=== PATIENT | female | born 2000 | race Caucasian/White ===

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

== ENCOUNTER → 2021-02-22 12:55 | Outpatient (CLI) | payer OTHER, SELFPAY ==
--- NOTE | 2021-02-22 12:56 | US_ITS ---
PROCEDURE: US OB >= 14 WEEKS FETUS CLINICAL INDICATION: anatomy scan COMPARISON: No exams were available for comparison FINDINGS: There is a single live intrauterine gestation. There is cephalic presentation. The cervix is closed and measures 3 cm. Of sent is posterior and grade 1. Complete survey performed and was unremarkable on the submitted images as in PACS. No discrete anomalies identified on survey imaging by technologist. Active fetus. Three-vessel cord with satisfactory umbilical cord insertion. 4- chamber heart noted. Survey of brain & ventricles Unremarkable. Face and neck survey unremarkable. Diaphragm and chest views unremarkable. Abdomen: Both kidneys noted and unremarkable. Stomach noted and satisfactory. Spine: Survey of the spine satisfactory with no anomalies identified nor imaged. Both arms and legs noted. Amniotic Fluid: Adequate. Maternal adnexa: No significant findings. Measurements: Average ultrasound age 19weeks 2days. Gestational Age 19weeks 2days Estimated due date by ultrasound age 0507/17/2021. Estimated weight 288g BPD = 19weeks 3days OFD = 19weeks 3days HC = 18weeks 5days AC = 19weeks 5days FL = 19weeks 2days Growth Percentile= 11% Heart Rate = 146bpm Cerebellum = 19weeks Humerus = 19weeks 2days HC/AC is 1.11 CI is 0.79 FL/BPD is 0.67 FL/AC is 0.21 IMPRESSION: Live IUP with an average ultrasound age of 19 weeks 2 days with cephalic presentation. No obvious anomalies. Please see above for detail. Dictated by: Johnie Haddad MD 02/23/2021 09:36 Johnie Haddad MD in [place] 02/23/2021 09:36
== END ==
PROVIDERS: PCP Family Medicine; Visit Provider Obstetrics & Gynecology
DX: Z34.90 Encounter for supervision of normal pregnancy, unspecified, unspecified trimester (principal)
CPT/HCPCS: 76805

== ENCOUNTER 2021-02-24 13:59 | Emergency (ER) | payer OTHER, SELFPAY ==
[2021-02-24 16:35] VITALS: BP 0/0; PULSE 0; RESP 0; TEMP -17.7; TEMP 0
== END 2021-02-24 16:36 | disposition left against medical advice (07) ==
LOC: UTC 14:01
PROVIDERS: Emergency Provider Nurse Practitioner Family; PCP Family Medicine
DX: Z53.21 Procedure and treatment not carried out due to patient leaving prior to being seen by health care provider (principal)

== ENCOUNTER 2021-02-25 19:21 | Emergency (ER) | payer OTHER, SELFPAY ==
[2021-02-25 20:37] VITALS: BP 121/67; PULSE 90; RESP 14; TEMP 36.8; O2SAT 100; BMI 18.6
--- NOTE | 2021-02-25 20:39 | HMH.EDUTC ---
[facility] [place] Clinical Impression: Sinusitis Qualifiers: Sinusitis location: unspecified location Chronicity: acute Recurrence: non-recurrent Qualified Code(s): J01.90 - Acute sinusitis, unspecified Qualifiers: Weeks of gestation: 20 weeks Qualified Code(s): Z3A.20 - 20 weeks gestation of Disposition: Home, Self-Care Condition on Discharge: Good Instructions: DI for Sinusitis, Sinusitis Additional Instructions: Drink plenty of fluids. Take tylenol or ibuprofen for pain or fever. Take the medications as directed. Follow up with your regular doctor. GO TO THE ER FOR ANY WORSENING SYMPTOMS Prescriptions: Azithromycin [Z-Ck 250mg Tab*] 250 mg PO UD DOSE PK #6 tab Transmission Status: [facility]ending [facility] Referrals: Rohit Coronel MD [Primary Care Provider] - Time of Disposition: 20:59 Medical Decision Making - Medical Records Medical records reviewed: No: I reviewed the patient's medical records. - Fercho Inquiry Pt receiving controlled substance: No Vital Signs: 02/25/21 20:37 Temperature 98.2 F Temperature Source Oral Pulse Rate [Left] 90 Respiratory Rate 14 Blood Pressure [Right Arm] 121/67 Blood Pressure Mean [Right Arm] 85 02 Sat by Pulse Oximetry 100 Orders (Tests/Meds): ORDERS Category Date Time Status Full Resp Panel w/COVID ([facility]) Routine Lab 02/25/21 20:42 Ordered [facility] [place] HPI - General Stated complaint: sinus infection Time Seen by Provider: 02/25/21 20:39 - History of Present Illness Provider Complaint: She states that she has sinus congestion with greenish drainage, bilateral ear pain and a head ache. She gets sinus infections this time of the year. She denies any fever or chills. She is 20 weeks . - Related Data Home Medications Medication Instructions Recorded Confirmed docosahexaenoic acid 200 mg capsule mg PO 12/06/20 01/31/21 Previous Rx's Medication Instructions Recorded ondansetron 4 mg disintegrating 4 mg PO Q4H PRN #30 tab 12/06/20 tablet Azithromycin [Z-Ck 250mg Tab*] 250 mg PO UD DOSE PK #6 tab 02/25/21 Allergies Allergy/AdvReac Type Severity Reaction Status Date / Time No Known Allergies Allergy Verified 01/31/21 15:39 [facility] History - Hepatitis A Screen Attestation statement:: This patient has been screened for Hepatitis A risk factors. I have reviewed the patient's past medical history: Yes 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: Reports:: Migraine Denies:: Cancer, Diabetes Mellitus Type 1, Diabetes Mellitus Type 2, Internal Pacemaker, MRSA, Seizures Laterality Cases: Bilateral: Tonsillectomy Other Surgeries: No: Pacemaker Amputation: No Fractures: No - 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 Smoking Status: Former smoker Alcohol Intake: never Alcohol Intake Frequency:: other Substance Use Type: former substance user, marijuana Occupational Status: other Housing: house Household Members: family Family Hx:: Unable to obtain, Cancer, Diabetes, Hypertension, Thyroid Disorder, Heart Attack, Hyperlipidemia ROS Obtained: Yes All systems reviewed & no additional complaints - Constitutional Constitutional: Denies chills, Denies fever(s), Reports poor appetite, Reports malaise - Eyes Eyes: Denies eye discharge - ENT Ears, Nose, Mouth, and Throat: Denies dizziness, Reports otalgia, Reports sore throat - Cardiovascular Cardiovascular: Denies chest pain - Respiratory Respiratory: Denies chest congestion, Reports cough, Denies dyspnea, Denies stridor, Denies wheezing Physical Exam - General General appearance: alert, in no apparent distress - Head Head exam: atraumatic, normocephalic, normal inspection - Eye Eye exam: Present: normal appearance, PERRL, EOMI - ENT ENT exam: Present: mucous membranes moist, normal external ear exam - Expanded ENT Exam TM/Canal exam: Bilateral TM: erythema, bulging, effusion Nose exam: Present: sinus tenderness Nasal speculum exam: Bilateral: normal Mouth exam
[2021-02-25 20:57] VITALS: BP 121/67; PULSE 90; RESP 14; TEMP 36.8
[2021-02-25 21:06] LABS: Adenovirus,PCR Not Detected (NotDetected); Bordetella Pertussis Not Detected (NotDetected); Chlamydophila Pneumoniae, PCR Not Detected (NotDetected); Coronavirus 19, PCR Not Detected (NotDetected); Coronavirus 229E Not Detected (NotDetected); Coronavirus NL63 Not Detected (NotDetected); Coronavirus OC43 Not Detected (NotDetected); Coronovirus HKU1,PCR Not Detected (NotDetected); Human Metapneumovirus Not Detected (NotDetected); Influenza A, PCR Not Detected (NotDetected); Influenza AH1, 2009 Not Detected (NotDetected); Influenza AH1, PCR Not Detected (NotDetected); Influenza AH3,PCR Not Detected (NotDetected); Influenza B, PCR Not Detected (NotDetected); Mycoplasma Pneumoniae, PCR Not Detected (NotDetected); Parainfluenza 1, PCR Not Detected (NotDetected); Parainfluenza 2, PCR Not Detected (NotDetected); Parainfluenza 3, PCR Not Detected (NotDetected); Parainfluenza 4, PCR Not Detected (NotDetected); Respiratory Syncytial Virus Not Detected (NotDetected); Rhinovirus/Enterovirus Not Detected (NotDetected)
== END 2021-02-25 21:08 | disposition home or self-care (01) ==
PROVIDERS: Emergency Provider Nurse Practitioner Family; PCP Family Medicine
DX: J01.90 Acute sinusitis, unspecified (principal); Z3A.20 20 weeks gestation of pregnancy; Z87.891 Personal history of nicotine dependence
CPT/HCPCS: 87581; 87632; 87798; 99202; C9803; G0463; U0003; U0005

== ENCOUNTER 2021-03-15 11:26 | Emergency (ER) | payer OTHER, SELFPAY ==
[2021-03-15 13:38] VITALS: BP 127/70; PULSE 94; RESP 16; TEMP 36.9; O2SAT 99; BMI 18.9
--- NOTE | 2021-03-15 14:06 | HMH.EDUTC ---
[facility] [place] Clinical Impression: Viral syndrome, Exposure to COVID-19 virus Pharyngitis Qualifiers: Pharyngitis/tonsillitis etiology: unspecified etiology Qualified Code(s): J02.9 - Acute pharyngitis, unspecified Qualifiers: Weeks of gestation: 21 weeks Qualified Code(s): Z3A.21 - 21 weeks gestation of Disposition: Home, Self-Care Condition on Discharge: Good Instructions: DI for Strep Throat, DI for COVID-19 (Suspected or Confirmed ), Preventing the Spread of Coronavirus Discharge Instructions Additional Instructions: Drink plenty of fluids. Take tylenol for pain or fever. Take the medications as directed. Follow up with your regular doctor. GO TO THE ER FOR ANY WORSENING SYMPTOMS Throw your tooth brush away and get a new one. Quarantine until you know the results of your covid-19 test. Notify your school or workplace of your results and follow their instructions regarding return to work/school. Let your instructional aide doctor know what is going on with you. Prescriptions: Amoxicillin [Amoxicillin 500mg Tab] 500 mg PO TID 10 Days #30 tab Transmission Status: [facility] to [facility] Referrals: Rohit Coronel MD [Primary Care Provider] - Forms: Work/School Release Time of Disposition: 14:45 Medical Decision Making - Medical Records Medical records reviewed: No: I reviewed the patient's medical records. - Fercho Inquiry Pt receiving controlled substance: No Vital Signs: 03/15/21 13:38 Temperature 98.4 F Temperature Source Oral Pulse Rate [Left] 94 H Respiratory Rate 16 Blood Pressure [Right Arm] 127/70 Blood Pressure Mean [Right Arm] 89 02 Sat by Pulse Oximetry 99 - Lab Data Lab results reviewed: Yes: I reviewed the patient's lab results. Orders (Tests/Meds): ORDERS Category Date Time Status Covid-19 Nasal PCR ([facility]) Routine Lab 03/15/21 13:42 Received [facility] [place]PI - General Stated complaint: sore throat Time Seen by Provider: 03/15/21 14:06 Mode of Arrival: Ambulatory Source of Information: Patient Limitations: No Limitations Description of Symptoms (Recalled from Triage Doc. by RN): pt c/o a sore throat since yesterday. . HEENT Symptoms (Recalled from RN notes): Yes (sore throat) Resp Symptoms (Recalled from RN notes): No Skin Symptoms (Recalled from RN notes): No MS Symptoms (Recalled from RN notes): No Functional Status (Recalled from RN notes): wnl - History of Present Illness Provider Complaint: She c/o having a very sore throat for the past 2 days. She denies fever/chills/body ache and cough. She has not been vaccinated against covid-19. She is 21 weeks . - Related Data Home Medications Medication Instructions Recorded Confirmed docosahexaenoic acid 200 mg capsule mg PO 12/06/20 01/31/21 Previous Rx's Medication Instructions Recorded ondansetron 4 mg disintegrating 4 mg PO Q4H PRN #30 tab 12/06/20 tablet Azithromycin [Z-Ck 250mg Tab*] 250 mg PO UD DOSE PK #6 tab 02/25/21 Amoxicillin [Amoxicillin 500mg Tab] 500 mg PO TID 10 Days #30 tab 03/15/21 Allergies Allergy/AdvReac Type Severity Reaction Status Date / Time No Known Allergies Allergy Verified 01/31/21 15:39 - Worker's Comp Is this a Worker's Comp case?: No [facility] History - Hepatitis A Screen Drug use history?: No High risk sexual behaviors?: No History of sexually transmitted infection?: No Currently employed?: No Childcare worker?: No Do you have indoor plumbing?: Yes Do you have electricity?: Yes Attestation statement:: This patient has been screened for Hepatitis A risk factors. I have reviewed the patient's past medical history: Yes 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: Reports:: Migraine Denies:: Cancer, Diabetes Mellitus Type 1, Diabetes Mellitus Type 2, Internal Pacemaker, MRSA, Seizures Laterality Cases: Bilateral: Tonsillectomy Other Surgeries: No: Pacemaker Amputation: No Fractures: No - 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 Smoking Status: Former
[2021-03-15 14:52] LABS: UTC Strep Screen (Rapid) Negative (Negative)
[2021-03-15 14:53] LABS: UTC Influenza A Antigen Negative (Negative); UTC Influenza B Antigen Negative (Negative)
[2021-03-15 14:56] VITALS: BP 127/70; PULSE 94; RESP 16; TEMP 36.9
[2021-03-15 15:03] LABS: Adenovirus,PCR Not Detected (NotDetected); Bordetella Pertussis Not Detected (NotDetected); Chlamydophila Pneumoniae, PCR Not Detected (NotDetected); Coronavirus 19, PCR Not Detected (NotDetected); Coronavirus 229E Not Detected (NotDetected); Coronavirus NL63 Not Detected (NotDetected); Coronavirus OC43 Not Detected (NotDetected); Coronovirus HKU1,PCR Not Detected (NotDetected); Human Metapneumovirus Not Detected (NotDetected); Influenza A, PCR Not Detected (NotDetected); Influenza AH1, 2009 Not Detected (NotDetected); Influenza AH1, PCR Not Detected (NotDetected); Influenza AH3,PCR Not Detected (NotDetected); Influenza B, PCR Not Detected (NotDetected); Mycoplasma Pneumoniae, PCR Not Detected (NotDetected); Parainfluenza 1, PCR Not Detected (NotDetected); Parainfluenza 2, PCR Not Detected (NotDetected); Parainfluenza 3, PCR Not Detected (NotDetected); Parainfluenza 4, PCR Not Detected (NotDetected); Respiratory Syncytial Virus Not Detected (NotDetected); Rhinovirus/Enterovirus Not Detected (NotDetected)
== END 2021-03-15 14:59 | disposition home or self-care (01) ==
PROVIDERS: Emergency Provider Nurse Practitioner Family; PCP Family Medicine
DX: O26.892 Other specified pregnancy related conditions, second trimester (principal); B34.9 Viral infection, unspecified; Z20.822 Contact with and (suspected) exposure to COVID-19; Z87.891 Personal history of nicotine dependence
CPT/HCPCS: 87581; 87632; 87798; 87804; 87880; 99203; C9803; G0463; U0003; U0005

== ENCOUNTER → 2021-03-20 17:13 | Outpatient (CLI) | payer OTHER, SELFPAY | PROVIDERS: Visit Provider Nurse Practitioner | DX: U07.1 COVID-19 (principal) | CPT/HCPCS: C9803; U0003; U0005 ==

== ENCOUNTER 2021-08-12 16:32 | Emergency (ER) | payer OTHER, SELFPAY ==
[2021-08-12 17:09] VITALS: BP 125/83; PULSE 79; RESP 17; TEMP 36.9; O2SAT 100; BMI 18.3
--- NOTE | 2021-08-12 17:31 | HMH.EDUTC ---
[facility] [place] Clinical Impression: Anxiety Fatigue Qualifiers: Fatigue type: unspecified Qualified Code(s): R53.83 - Other fatigue Disposition: Home, Self-Care Condition on Discharge: Good Instructions: DI for Anxiety -- Adult, Hydroxyzine, Sertraline Additional Instructions: Drink plenty of fluids. Take the medications as directed. Take the hydroxyzine (vistaril) as needed for anxiety. Take the zoloft daily. Follow up with your regular doctor for further evaluation and treatment GO TO THE ER FOR ANY WORSENING SYMPTOMS Prescriptions: hydrOXYzine HCl [Hydroxyzine HCl] 10 mg PO Q6HP PRN #30 ml PRN Reason: Anxiety Transmission Status: Received by [facility] Sertraline HCl [Zoloft 50mg tablet] 50 mg PO DAILY 30 Days #30 tab Transmission Status: Received by [facility] Referrals: Rohit Coronel MD [Primary Care Provider] - Time of Disposition: 18:33 Medical Decision Making - Medical Records Medical records reviewed: No: I reviewed the patient's medical records. - Fercho Inquiry Pt receiving controlled substance: No Vital Signs: 08/12/21 17:09 08/12/21 18:36 Temperature 98.5 F 98.5 F Temperature Source Oral Pulse Rate 79 Pulse Rate [Left Radial] 79 Respiratory Rate 17 17 Blood Pressure 125/83 Blood Pressure [Right Arm] 125/83 Blood Pressure Mean [Right Arm] 97 02 Sat by Pulse Oximetry 100 - Lab Data Lab results reviewed: Yes: I reviewed the patient's lab results. Lab Results 08/12/21 17:57: WBC 7.6, RBC 5.62 H, Hgb 12.8, Hct 39.6, MCV 70.4 L, MCH 22.8 L, MCHC 32.4, RDW 22.8 H, Plt Count 366, MPV 8.9, Neut % (Auto) 57.0, Lymph % (Auto) 31.5, [place] % (Auto) 6.7, Eos % (Auto) 1.7, Baso % (Auto) 3.1 H, Neut # (Auto) 4.3, Lymph # (Auto) 2.4, [place] # (Auto) 0.5, Eos # (Auto) 0.1, Baso # (Auto) 0.2 08/12/21 17:57: Sodium 138, Potassium 3.9, Chloride 103, Carbon Dioxide 24, Anion Gap 14.9, BUN 6 L, Creatinine 0.60, Estimated Creat Clear 102, Estimated GFR 129, Est GFR ( Amer) 156, Glucose 89, Calcium 9.8 Result diagrams: 08/12/21 17:57 08/12/21 17:57 [facility] [place] - General Stated complaint: Anixtly Time Seen by Provider: 08/12/21 17:31 Description of Symptoms (Recalled from Triage Doc. by RN): patient comes in with multiple complaints. patient has had trouble eating and sleeping for two weeks. patient has had headaches and dizziness for 2 days. patient is having worseing trouble with anxiety for years. patiet had a baby 1 month ago. patient states that when she eats salt it helps. HEENT Symptoms (Recalled from RN notes): No Resp Symptoms (Recalled from RN notes): No Skin Symptoms (Recalled from RN notes): No MS Symptoms (Recalled from RN notes): No Functional Status (Recalled from RN notes): wnl - History of Present Illness Provider Complaint: She is here with complaint of worsening fatigue and anxiety. She denies any SI or HI. She had a baby 1 month ago. She is not breast feeding. She states that she was anemic during her and she is worried that she still is because of how she is feeling. - Related Data Home Medications Medication Instructions Recorded Confirmed docosahexaenoic acid 200 mg capsule mg PO 12/06/20 01/31/21 Previous Rx's Medication Instructions Recorded ondansetron 4 mg disintegrating 4 mg PO Q4H PRN #30 tab 12/06/20 tablet Azithromycin [Z-Ck 250mg Tab*] 250 mg PO UD DOSE PK #6 tab 02/25/21 Amoxicillin [Amoxicillin 500mg Tab] 500 mg PO TID 10 Days #30 tab 03/15/21 Sertraline HCl [Zoloft 50mg tablet] 50 mg PO DAILY 30 Days #30 tab 08/12/21 hydrOXYzine HCl [Hydroxyzine HCl] 10 mg PO Q6HP PRN #30 ml 08/12/21 Allergies Allergy/AdvReac Type Severity Reaction Status Date / Time No Known Allergies Allergy Verified 01/31/21 15:39 - Worker's Comp Is this a Worker's Comp case?: No [facility] History - Hepatitis A Screen Attestation statement:: This patient has been screened for Hepatitis A risk fac
[2021-08-12 18:11] LABS: Basophils # 0.2 K/mm3 (0-0.2); Basophils % 3.1 % (0.1-2.0); Eosinophils # 0.1 K/mm3 (0.0-0.4); Eosinophils % 1.7 % (0.1-12.0); Hematocrit 39.6 % (37.0-47.0); Hemoglobin 12.8 g/dL (12.2-16.2); Lymphocytes # 2.4 K/mm3 (0.7-4.5); Lymphocytes % 31.5 % (10-50); Mean Corpuscular HGB Conc 32.4 g/dL (31.8-35.4); Mean Corpuscular Hemoglobin 22.8 pg (27.0-31.2); Mean Corpuscular Volume 70.4 fl (81-99); Mean Platelet Volume 8.9 fl (7.4-10.4); Monocytes # 0.5 K/mm3 (0.1-1.0); Monocytes % 6.7 % (1.7-9.3); Neutrophils # 4.3 K/mm3 (1.8-7.8); Platelet Count 366 K/mm3 (142-424); Red Blood Count 5.62 M/mm3 (4.20-5.40); Red Cell Distribution Width 22.8 % (11.5-17.5); White Blood Count 7.6 K/mm3 (4.5-13.0)
[2021-08-12 18:15] LABS: Chloride 103 mmol/L (98-107); Potassium 3.9 mmoL/L (3.5-5.1); Sodium 138 mmol/L (136-145)
[2021-08-12 18:18] LABS: Anion Gap 14.9 mEq/L (5-15); Blood Urea Nitrogen 6 mg/dl (7-17); Calcium 9.8 mg/dl (8.4-10.2); Carbon Dioxide 24 mmol/L (22.0-30.0); Creatinine Clearance Estimated 102 mL/min (50-200); Estimated Glomerular Filt Rate 129 ml/min (>60); GFR (African American) 156 ML/MIN (>60); Glucose 89 mg/dl (74-100)
[2021-08-12 18:36] VITALS: BP 125/83; PULSE 79; RESP 17; TEMP 36.9
== END 2021-08-12 18:40 | disposition home or self-care (01) ==
PROVIDERS: Emergency Provider Nurse Practitioner Family; PCP Family Medicine
DX: R53.83 Other fatigue (principal); R42 Dizziness and giddiness; G43.909 Migraine, unspecified, not intractable, without status migrainosus; F41.9 Anxiety disorder, unspecified
CPT/HCPCS: 80048; 85025; 99213; G0463

== ENCOUNTER 2021-11-25 18:31 | Emergency (ER) | payer OTHER, SELFPAY ==
[2021-11-25 18:45] VITALS: BP 131/89; PULSE 86; RESP 19; TEMP 36.7; O2SAT 100; BMI 14.6
--- NOTE | 2021-11-25 18:55 | EXP.UTC ---
Discharge Plan Disposition Patient Disposition: Home, Self-Care Condition: Good Prescriptions Prescriptions: No Action ondansetron 4 mg tablet,disintegrating 4 mg PO Q4H PRN (Reason: nausea and vomiting) Qty: 30 4RF DHA 200 mg capsule PO amoxicillin 500 MG tablet 500 mg PO TID 10 Days Qty: 30 0RF sertraline 50 MG tablet 50 mg PO DAILY 30 Days Qty: 30 0RF hydroxyzine HCl 10 MG/5 ML solution 10 mg PO Q6HP PRN (Reason: Anxiety) Qty: 30 0RF azithromycin 250 MG tablet 250 mg PO UD DOSE PK Qty: 6 0RF Rx Instructions: Take two (2) tablets today, then one (1) tablet days #2 thru #5 Referrals Follow up/Referrals: Rohit Coronel MD [Primary Care Provider] - See instructions Activity Restrictions/Add. Instructions Additional Instructions/Restrictions: gargle in salt water every 3 hours use mouthwash bid orgel as needed if symptoms worsen or do not improve return or be seen in ed Clinical Impressions Clinical Impression: Canker sores oral Instructions Patient Instructions: Canker Sores (Alternative Therapy), DI for Aphthous Ulcers (Canker Sores) Discharge ED Provider: Caitlin ([facility])Scott [facility] [place] HPI General Stated complaint: sore throat, blisers on tongue Time Seen by Provider: 11/25/21 18:58 HEENT Symptoms (Recalled from RN notes): No Resp Symptoms (Recalled from RN notes): No Skin Symptoms (Recalled from RN notes): No GI/ Symptoms (Recalled from RN notes): No MS Symptoms (Recalled from RN notes): No Card Symptoms (Recalled from RN notes): No Other (Recalled from RN notes): No History of Present Illness Provider Complaint: 21 yr old female presents for sore to side of tongue and gum. Related Data Home Medications Medication Instructions Recorded Confirmed docosahexaenoic acid 200 mg mg PO 12/06/20 01/31/21 capsule ( DHA) Previous Rx's Medication Instructions Recorded ondansetron 4 mg disintegrating 4 mg PO Q4H PRN nausea and 12/06/20 tablet vomiting #30 tabs azithromycin 250 mg tablet 250 mg PO UD DOSE PK #6 tabs 02/25/21 amoxicillin 500 mg tablet 500 mg PO TID 10 days #30 tabs 03/15/21 hydroxyzine HCl 10 mg/5 mL (5 mL) 10 mg (5 mL) PO Q6HP PRN Anxiety 08/12/21 oral solution #30 mL sertraline 50 mg tablet 50 mg PO DAILY 30 days #30 tabs 08/12/21 Allergies Allergy/AdvReac Type Severity Reaction Status Date / Time No Known Allergies Allergy Verified 01/31/21 15:39 PFSH PFSH 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 , 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) 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 Urinary tract infection 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 , 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) History of 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 , 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) Smoking Status: Former smoker alcohol intake: never substance use type: former substance user and marijuana current occupational status: other Travel in the last 8 weeks: None household members: family housing: house caffeine: Yes ROS Obtained: Yes All systems reviewed & no additional complaints except as documented Constitutional Constitutional: Reports system reviewed and no additional complaints, except as documented Eyes Eyes: Reports system reviewed and no additional complaints, except as documented ENT Ears, Nose, Mouth, and Throat: Reports system reviewed and no additional complaints, except as documented and Reports as per HPI Cardiovascular Cardiovascular: Reports system reviewed and no additional complaints, except as documented Respiratory Respiratory: Reports system reviewed and no additional complaints, except as documented Gastrointestinal Gastrointestingal: Reports system reviewed and no additional complaints, except as documented Musculoskeletal Musculoskeletal: Reports system reviewed and no additional complaints, except as documented Integumentary/Breasts Skin/Breast: Reports system reviewed and no additional complaints, except
[2021-11-25 19:04] VITALS: BP 131/89; PULSE 86; RESP 19; TEMP 36.7; O2SAT 100
== END 2021-11-25 19:12 | disposition home or self-care (01) ==
PROVIDERS: Emergency Provider Nurse Practitioner Family; PCP Family Medicine
DX: K12.0 Recurrent oral aphthae (principal)
CPT/HCPCS: 99212; G0463

== ENCOUNTER → 2021-11-28 16:03 | Outpatient (CLI) | payer OTHER, SELFPAY ==
[2021-11-28 17:01] LABS: Coronavirus 19, PCR Not Detected (NotDetected); Influenza A, PCR Not Detected (NotDetected); Influenza B, PCR Not Detected (NotDetected)
[2021-11-28 18:37] LABS: Strep Scrn Group A (Rapid) Positive (Negative)
[2021-11-28 18:45] LABS: Basophils # 0.1 K/mm3 (0-0.2); Basophils % 0.7 % (0.1-2.0); Eosinophils # 0.1 K/mm3 (0.0-0.4); Eosinophils % 0.8 % (0.1-12.0); Hematocrit 37.1 % (37.0-47.0); Hemoglobin 11.7 g/dL (12.2-16.2); Lymphocytes # 2.4 K/mm3 (0.7-4.5); Lymphocytes % 26.2 % (10-50); Mean Corpuscular HGB Conc 31.4 g/dL (31.8-35.4); Mean Corpuscular Volume 76.3 fl (81-99); Monocytes # 0.3 K/mm3 (0.1-1.0); Monocytes % 3.7 % (1.7-9.3); Neutrophils # 6.3 K/mm3 (1.8-7.8); Neutrophils % 68.6 % (37.0-80.0); Platelet Count 495 K/mm3 (142-424); Red Blood Count 4.87 M/mm3 (4.20-5.40); Red Cell Distribution Width 16.8 % (11.5-17.5); White Blood Count 9.2 K/mm3 (4.5-13.0)
== END ==
PROVIDERS: PCP Family Medicine; Visit Provider Family Medicine
DX: Z20.822 Contact with and (suspected) exposure to COVID-19 (principal); J02.0 Streptococcal pharyngitis
CPT/HCPCS: 36415; 85025; 87430; C9803; U0003; U0005

== ENCOUNTER 2022-01-08 14:04 | Emergency (ER) | payer OTHER, SELFPAY ==
[2022-01-08 15:00] VITALS: BP 117/75; PULSE 90; RESP 20; TEMP 37.5; O2SAT 98; BMI 16.7
--- NOTE | 2022-01-08 15:09 | XR_ITS ---
FINAL REPORT TECHNIQUE: Single view chest CLINICAL HISTORY: cough COMPARISON: 09/17/2018 FINDINGS: A single view of the chest was obtained. The heart and mediastinum are within normal limits. The lungs are clear. There is no pneumothorax. Osseous structures demonstrate mild thoracic scoliosis convex to the right. IMPRESSION: No acute cardiopulmonary process. Reviewed, Interpreted and Dictated by Adal Sutton MD Transcribed by Lisa Bass Authenticated and [facility]
--- NOTE | 2022-01-08 15:11 | HMH.EDGENADL ---
Discharge Plan Disposition Patient Disposition: Home, Self-Care Condition: Good Prescriptions Prescriptions: New azithromycin [Zithromax Z-Ck] 250 mg tablet 250 mg PO DAILY 6 Days Qty: 6 0RF Rx Instructions: start on day 2 of therapy No Action ondansetron 4 mg tablet,disintegrating 4 mg PO Q4H PRN (Reason: nausea and vomiting) Qty: 30 4RF DHA 200 mg capsule PO amoxicillin 500 MG tablet 500 mg PO TID 10 Days Qty: 30 0RF sertraline 50 MG tablet 50 mg PO DAILY 30 Days Qty: 30 0RF hydroxyzine HCl 10 MG/5 ML solution 10 mg PO Q6HP PRN (Reason: Anxiety) Qty: 30 0RF azithromycin 250 MG tablet 250 mg PO UD DOSE PK Qty: 6 0RF Rx Instructions: Take two (2) tablets today, then one (1) tablet days #2 thru #5 Referrals Follow up/Referrals: Rohit Coronel MD [Primary Care Provider] - See instructions Clinical Impressions Clinical Impression: Bronchitis Discharge ED Provider: Sam Carter General Adult HPI General Chief complaint: Upper Respiratory Infection Stated complaint: Sore throat,Headache,Cough Time Seen by Provider: 01/08/22 14:35 Mode of Arrival: Ambulatory Source of Information: Patient Limitations: No Limitations Description of Symptoms (Recalled from ER Triage Doc. by RN): pt to ed c/o sore throat, chest congestion, headache, bilateral ear pain x3 days. History of Present Illness HPI narrative: Patient presents with 2-day history of cough and chest discomfort, shortness of air in association with coughing. She also complains of sore throat. Been no fever at home although her temperature was 99 5. She describes symptoms as mild to moderate and again worse with coughing. Related Data Home Medications Medication Instructions Recorded Confirmed docosahexaenoic acid 200 mg mg PO 12/06/20 01/31/21 capsule ( DHA) Previous Rx's Medication Instructions Recorded ondansetron 4 mg disintegrating 4 mg PO Q4H PRN nausea and 12/06/20 tablet vomiting #30 tabs azithromycin 250 mg tablet 250 mg PO UD DOSE PK #6 tabs 02/25/21 amoxicillin 500 mg tablet 500 mg PO TID 10 days #30 tabs 03/15/21 hydroxyzine HCl 10 mg/5 mL (5 mL) 10 mg (5 mL) PO Q6HP PRN Anxiety 08/12/21 oral solution #30 mL sertraline 50 mg tablet 50 mg PO DAILY 30 days #30 tabs 08/12/21 azithromycin 250 mg tablet 250 mg PO DAILY 6 days #6 tabs 01/08/22 (Zithromax Z-Ck) Allergies Allergy/AdvReac Type Severity Reaction Status Date / Time No Known Allergies Allergy Verified 01/31/21 15:39 PFSH PFSH 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 , 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 Urinary tract infection 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 , 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) History of 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 , 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) Smoking Status: Never smoker alcohol intake: never substance use type: former substance user and marijuana current occupational status: other Travel in the last 8 weeks: None household members: family housing: house caffeine: Yes ROS Obtained: Yes All systems reviewed & no additional complaints except as documented Constitutional Constitutional: Reports system reviewed and no additional complaints, except as documented Physical Exam General General appearance: alert and in no apparent distress Head Head exam: atraumatic and normocephalic Eye Eye exam: Present normal appearance ENT ENT exam: Present normal exam and normal oropharynx Neck Neck exam: Present normal inspection Chest Chest inspection: Present normal inspection and symmetric chest wall rise Respiratory Respiratory exam: Present normal lung sounds bilaterally Cardiovascular Cardiovascular exam: Present regular rate and normal rhythm Abdominal Exam Abdominal exam: Present soft; Absent tenderness Extremities Exam Extremities exam: Present normal inspection Back Exam Back exam: Present nor
[2022-01-08 16:55] VITALS: BP 112/64; PULSE 70; RESP 16; TEMP 36.8; O2SAT 98
[2022-01-08 17:48] LABS: Coronavirus 19, PCR Not Detected (NotDetected); Influenza B, PCR Not Detected (NotDetected)
[2022-01-08 18:08] LABS: Influenza A, PCR Detected (NotDetected)
== END 2022-01-08 16:56 | disposition home or self-care (01) ==
PROVIDERS: Emergency Provider Emergency Medicine; PCP Family Medicine
DX: J10.1 Influenza due to other identified influenza virus with other respiratory manifestations (principal); H92.03 Otalgia, bilateral; R11.2 Nausea with vomiting, unspecified; R51.9 Headache, unspecified; R05.9 Cough, unspecified; F41.9 Anxiety disorder, unspecified; Z79.899 Other long term (current) drug therapy; Z87.440 Personal history of urinary (tract) infections; Z87.898 Personal history of other specified conditions
CPT/HCPCS: 71045; 99283; C9803; U0003; U0005

== ENCOUNTER 2022-01-10 02:54 | Emergency (ER) | payer OTHER, SELFPAY ==
[2022-01-10 03:24] VITALS: BP 0/0; PULSE 0; RESP 0; TEMP -17.7; TEMP 0
--- NOTE | 2022-01-10 03:25 | PC.NURSE ---
pt arrived at er with c/o not feeling well following a flu diagnosis. Pt states that she doesn't want to see a doctor but wants to have her vital signs checked . Patient is hemodynamically stable.
== END 2022-01-10 03:26 | disposition left against medical advice (07) ==
LOC: ER 03:16
PROVIDERS: Emergency Provider Emergency Medicine; PCP Family Medicine
DX: R06.02 Shortness of breath (principal); F41.9 Anxiety disorder, unspecified; Z53.21 Procedure and treatment not carried out due to patient leaving prior to being seen by health care provider
CPT/HCPCS: 99211

== ENCOUNTER 2022-02-26 19:43 | Emergency (ER) | payer OTHER, SELFPAY ==
[2022-02-26 19:44] VITALS: BP 130/80; PULSE 145; RESP 16; TEMP 37; O2SAT 96; BMI 16.4
--- NOTE | 2022-02-26 20:38 | HMH.EDGENADL ---
Discharge Plan Disposition Patient Disposition: Home, Self-Care Condition: Good Prescriptions Prescriptions: New ondansetron 4 mg tablet,disintegrating 4 mg PO Q8H PRN (Reason: nausea and vomiting) 4 Days Qty: 12 0RF famotidine [Pepcid] 20 mg tablet 20 mg PO DAILY Qty: 30 0RF No Action ondansetron 4 mg tablet,disintegrating 4 mg PO Q4H PRN (Reason: nausea and vomiting) Qty: 30 4RF DHA 200 mg capsule PO amoxicillin 500 MG tablet 500 mg PO TID 10 Days Qty: 30 0RF sertraline 50 MG tablet 50 mg PO DAILY 30 Days Qty: 30 0RF hydroxyzine HCl 10 MG/5 ML solution 10 mg PO Q6HP PRN (Reason: Anxiety) Qty: 30 0RF azithromycin 250 MG tablet 250 mg PO UD DOSE PK Qty: 6 0RF Rx Instructions: Take two (2) tablets today, then one (1) tablet days #2 thru #5 azithromycin [Zithromax Z-Ck] 250 mg tablet 250 mg PO DAILY 6 Days Qty: 6 0RF Rx Instructions: start on day 2 of therapy Referrals Follow up/Referrals: Rohit Coronel MD [Primary Care Provider] - See instructions Activity Restrictions/Add. Instructions Additional Instructions/Restrictions: You were evaluated in the emergency department today for nausea and vomiting. 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 Follow-up with your primary care provider over the next 48 hours. Return to the emergency department for any new or worsening symptoms. Clinical Impressions Clinical Impression: Nausea & vomiting Qualifiers: Vomiting type: unspecified Qualified Code(s): R11.2 - Nausea with vomiting, unspecified Instructions Patient Instructions: DI for Acute Abdominal Pain, DI for Vomiting -- Adult Discharge ED Provider: Richelle Flores General Adult HPI General Chief complaint: Abdominal Pain Stated complaint: vomiting, abd pain Time Seen by Provider: 02/26/22 20:09 Mode of Arrival: Ambulatory Source of Information: Patient Limitations: No Limitations Description of Symptoms (Recalled from ER Triage Doc. by RN): pt c/o abd pain and vomitting that started 3 hrs ago. History of Present Illness HPI narrative: This patient is a 21-year-old female with a history of delayed gastric emptying and anxiety presenting to the emergency department for evaluation of nausea and vomiting that started 3 hours ago. She also complained of epigastric pain, which is since resolved. Her emesis is nonbloody and nonbilious. She had just eaten [employer] prior to onset of symptoms. She denies any recent fevers, chills, changes in bowel movements, dysuria, or other concerns. She denies any medications prior to arrival. She currently denies any abdominal pain, stating that she just feels nauseated. Related Data Home Medications Medication Instructions Recorded Confirmed docosahexaenoic acid 200 mg mg PO 12/06/20 01/31/21 capsule ( DHA) Previous Rx's Medication Instructions Recorded ondansetron 4 mg disintegrating 4 mg PO Q4H PRN nausea and 12/06/20 tablet vomiting #30 tabs azithromycin 250 mg tablet 250 mg PO UD DOSE PK #6 tabs 02/25/21 amoxicillin 500 mg tablet 500 mg PO TID 10 days #30 tabs 03/15/21 hydroxyzine HCl 10 mg/5 mL (5 mL) 10 mg (5 mL) PO Q6HP PRN Anxiety 08/12/21 oral solution #30 mL sertraline 50 mg tablet 50 mg PO DAILY 30 days #30 tabs 08/12/21 azithromycin 250 mg tablet 250 mg PO DAILY 6 days #6 tabs 01/08/22 (Zithromax Z-Ck) famotidine 20 mg tablet (Pepcid) 20 mg PO DAILY #30 tabs 02/26/22 ondansetron 4 mg disintegrating 4 mg PO Q8H PRN nausea and 02/26/22 tablet vomiting 4 days #12 tabs Allergies Allergy/AdvReac Type Severity Reaction Status Date / Time No Known Allergies Allergy Verified 01/31/21 15:39 [facility] Disclaimer: The information contained in this section may have been updated after the patient was seen, as this information can be updated by other users. 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 (Reviewed 02/26/22 @ 21:05 by Richelle Otero
[2022-02-26 20:49] LABS: Microscopic, Urine URINE MICROSCOPIC (MICROSCOPIC)
[2022-02-26 20:53] LABS: Appearance,Urine CLEAR (Clear); Blood, Urine Negative (Negative); Color,Urine YELLOW (Yellow); Glucose,Urine (UA) Negative (Negative); Ketones,Urine 1+ (Negative); Leukocyte Esterase,Urine Negative (Negative); Nitrate,Urine Negative (Negative); Protein,Urine 1+ (Negative); Specific Gravity, Urine >= 1.030 (1.005-1.030); Urobilinogen,Urine 0.2 EU/dl (0.2)
[2022-02-26 21:09] LABS: Bilirubin,Urine 1+ (Negative)
[2022-02-26 21:10] LABS: Urine Pregnancy, HCG Qual. Negative (Negative)
[2022-02-26 21:34] LABS: Squamous Epithelial Cell,Urine Occasional #/hpf (0-5); WBC,Urine Occasional #/hpf (0-3)
[2022-02-26 22:00] VITALS: BP 127/87; PULSE 90; RESP 16; TEMP 37; O2SAT 96
== END 2022-02-26 22:02 | disposition home or self-care (01) ==
PROVIDERS: Emergency Provider Emergency Medicine; PCP Family Medicine
DX: R11.2 Nausea with vomiting, unspecified (principal); R10.13 Epigastric pain; F41.9 Anxiety disorder, unspecified; F17.210 Nicotine dependence, cigarettes, uncomplicated; Z87.440 Personal history of urinary (tract) infections; Z90.89 Acquired absence of other organs
CPT/HCPCS: 81001; 81025; 99283; 99284

== ENCOUNTER → 2022-05-09 11:59 | Outpatient (CLI) | payer OTHER, SELFPAY ==
--- NOTE | 2022-05-09 | XR_ITS ---
FINAL REPORT CLINICAL HISTORY: chest pain COMPARISON: 01/08/2022 FINDINGS: Two views of the chest were obtained. The heart size and pulmonary vascularity are within normal limits. The mediastinum is normal. No acute pulmonary abnormality is identified. There is no pneumothorax. There is mild S-shaped curvature of the thoracolumbar spine. IMPRESSION: No acute disease. Reviewed, Interpreted and Dictated by Harsha Hardy III, MD Transcribed by Evelyne Miguel Authenticated and [facility]
--- NOTE | 2022-05-09 12:08 | ECG_ITS ---
APPROVED REPORT Exam: Resting ECG HR:63 bpm ECG Measurements Heart Rate 63 AXES MA 145 P 67 QRSd 96 QRS 92 QT 395 T 66 QTc 402 Conclusion SINUS RHYTHM BORDERLINE RIGHT AXIS DEVIATION [QRS AXIS > 90] POSSIBLE RIGHT VENTRICULAR CONDUCTION DELAY [RSR (QR) IN V1/V2] BORDERLINE ECG UNCONFIRMED REPORT Electronically signed by : Dale Degroot MD 05/09/2022 20:25:19
--- NOTE | 2022-05-09 12:14 | XR_ITS ---
FINAL REPORT CLINICAL HISTORY: abd pain radiating into back COMPARISON: 10/08/2018 FINDINGS: ABDOMEN SINGLE VIEW / KUB A single view of the abdomen was obtained with a coned down view of the pelvis. There is a nonspecific bowel gas pattern. There is a moderate stool burden. There are no abnormally dilated loops of small bowel. No abnormal calcification is identified. IMPRESSION: Moderate stool burden. Reviewed, Interpreted and Dictated by Harsha Hardy III, MD Transcribed by Evelyne Miguel Authenticated and [facility]
== END ==
PROVIDERS: PCP Family Medicine; Visit Provider Nurse Practitioner Family
DX: R07.1 Chest pain on breathing (principal); R10.9 Unspecified abdominal pain
CPT/HCPCS: 71046; 74018; 93005

== ENCOUNTER 2022-07-01 22:15 | Emergency (ER) | payer OTHER, SELFPAY ==
[2022-07-01 22:24] VITALS: BP 125/83; PULSE 92; RESP 18; TEMP 36.6; O2SAT 98; BMI 14.1
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
--- NOTE | 2022-07-01 22:50 | PC.NURSE ---
Pt gone to RAD via wheelchair
--- NOTE | 2022-07-01 22:53 | PC.NURSE ---
PT back from RAD
[2022-07-02 00:11] VITALS: BP 120/80; PULSE 88; RESP 18; TEMP 36.6; O2SAT 99
== END 2022-07-02 00:12 | disposition home or self-care (01) ==
PROVIDERS: Emergency Provider Emergency Medicine; PCP Family Medicine
DX: S00.33XA Contusion of nose, initial encounter (principal); F17.200 Nicotine dependence, unspecified, uncomplicated; W51.XXXA Accidental striking against or bumped into by another person, initial encounter
CPT/HCPCS: 70160; 99283; 99284

== ENCOUNTER 2022-07-05 17:51 | Emergency (ER) | payer OTHER, SELFPAY ==
[2022-07-05 17:52] VITALS: BP 144/92; PULSE 93; RESP 17; TEMP 36.5; O2SAT 97; BMI 16.4
--- NOTE | 2022-07-05 17:59 | XR_ITS ---
PROCEDURE INFORMATION: Exam: XR Left Wrist Exam date and time: 07/05/2022 5:57 PM Age: 21 years old Clinical indication: Injury or trauma; Other: Crushing; Work related; Wrist; Left; Additional info: Trauma. Wrist got smashed/crushed between some carts at work today TECHNIQUE: Imaging protocol: Radiologic exam of the left wrist. Views: 3 or more views. COMPARISON: CR XR WRIST LT MIN 3V 05/03/2020 11:08 AM FINDINGS: Bones/joints: Normal. Soft tissues: Normal. IMPRESSION: No acute findings.
--- NOTE | 2022-07-05 17:59 | XR_ITS ---
PROCEDURE INFORMATION: Exam: XR Left Forearm Exam date and time: 07/05/2022 5:59 PM Age: 21 years old Clinical indication: Injury or trauma; Other: Crushing; Work related; Radius and ulna; Left; Additional info: Trauma. Forearm got smashed/crushed between some carts at work today TECHNIQUE: Imaging protocol: Radiologic exam of the left forearm. Views: 2 views. COMPARISON: CR XR FOREARM LT 2V 05/03/2020 11:10 AM FINDINGS: Bones/joints: Normal. Soft tissues: Normal. IMPRESSION: No acute findings.
--- NOTE | 2022-07-05 17:59 | XR_ITS ---
PROCEDURE INFORMATION: Exam: XR Left Hand Exam date and time: 07/05/2022 5:56 PM Age: 21 years old Clinical indication: Injury or trauma; Other: Crushing; Work related; Hand; Left; Additional info: Trauma. Hand got smashed/crushed between some carts at work today TECHNIQUE: Imaging protocol: Radiologic exam of the left hand. Views: 3 or more views. COMPARISON: CR XR FOREARM LT 2V 05/03/2020 11:10 AM FINDINGS: Bones/joints: Normal. Soft tissues: Normal. IMPRESSION: No acute findings.
--- NOTE | 2022-07-05 18:09 | HMH.EDGENADL ---
Discharge Plan Disposition Patient Disposition: Home, Self-Care Prescriptions Prescriptions: New naproxen 500 mg tablet 500 mg PO BID PRN (Reason: pain) Qty: 20 0RF Referrals Follow up/Referrals: Rohit Coronel MD [Primary Care Provider] - See instructions Activity Restrictions/Add. Instructions Additional Instructions/Restrictions: Follow-up with your primary care physician within the next few days. Clinical Impressions Clinical Impression: Contusion of forearm Discharge ED Provider: Francis Walker General Adult HPI General Chief complaint: Extremity Injury, Upper Stated complaint: WC 07/05@1700 injured L arm Time Seen by Provider: 07/05/22 17:55 Mode of Arrival: Ambulatory Source of Information: Patient Limitations: No Limitations Description of Symptoms (Recalled from ER Triage Doc. by RN): 21 F presents from work c/o left arm pain from her elbow down to her wrist. She was moving metal carts at work when her left arm got caught between two of the carts. She was not pinned between the carts. There is no obvious deformity or swelling noted. CMS intact. Tender on palpation History of Present Illness HPI narrative: 21-year-old female presents with left arm pain she says that she was moving metal carts at work when her left arm caught between 2 of the carts. And she was pinned between them. No other injuries no head injury no neck pain no loss of consciousness. No abdominal trauma or chest trauma. She is complaining of left forearm to left wrist pain Related Data Previous Rx's Medication Instructions Recorded naproxen 500 mg tablet 500 mg PO BID PRN pain #20 tabs 07/05/22 Allergies Allergy/AdvReac Type Severity Reaction Status Date / Time No Known Allergies Allergy Verified 01/31/21 15:39 [facility] Disclaimer: The information contained in this section may have been updated after the patient was seen, as this information can be updated by other users. 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 Anxiety Urinary tract infection 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 History of 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 Smoking Status: Current every day smoker alcohol intake: never substance use type: former substance user and marijuana current occupational status: other Travel in the last 8 weeks: None household members: family housing: house caffeine: Yes ROS Obtained: Yes All systems reviewed & no additional complaints except as documented Constitutional Constitutional: Denies fever(s) and Denies headache(s) Eyes Eyes: Denies dry eyes ENT Ears, Nose, Mouth, and Throat: Denies headache(s) Cardiovascular Cardiovascular: Denies dyspnea Respiratory Respiratory: Denies dyspnea and Denies wheezing Gastrointestinal Gastrointestingal: Denies constipation Genitourinary Female Genitourinary: Denies hematuria Musculoskeletal Musculoskeletal: Denies joint stiffness Integumentary/Breasts Skin/Breast: Denies rash Neurologic Neurologic: Denies headache(s) Endocrine Endocrine: Denies flushing Hematologic/Lymphatic Henatologic/Lymphatic: Denies easy bleeding Allergic/Immunologic Allergic/Immunologic: Denies wheezing Physical Exam General General appearance: alert and in no apparent distress Eye Eye exam: Present PERRL and EOMI ENT ENT exam: Present normal exam and normal oropharynx Neck Neck exam: Present normal inspection Chest Chest inspection: Present symmetric chest wall rise Respiratory Respiratory exam: Present normal lung sounds bilaterally; Absent respiratory distress Cardiovascular Cardiovascular exam: Present regular rate and normal rhythm Abdominal Exam Abdominal exam: Present soft; Absent distention, tenderness, guarding, rebound, Hannon's sign or tenderness at McBurney's Point Extremities Exam Extremities exam: Present other (Left forearm mild tenderness no defo
[2022-07-05 18:35] VITALS: BP 136/89; PULSE 86; RESP 17; TEMP 36.5; O2SAT 99
== END 2022-07-05 18:35 | disposition home or self-care (01) ==
PROVIDERS: Emergency Provider Emergency Medicine; PCP Family Medicine
DX: S50.12XA Contusion of left forearm, initial encounter (principal); F17.200 Nicotine dependence, unspecified, uncomplicated; W23.0XXA Caught, crushed, jammed, or pinched between moving objects, initial encounter
CPT/HCPCS: 73090; 73110; 73130; 99284

== ENCOUNTER 2022-11-04 09:32 | Emergency (ER) | payer OTHER, SELFPAY ==
[2022-11-04 09:45] VITALS: BP 123/55; PULSE 129; RESP 20; TEMP 36.8; O2SAT 97; BMI 16.9
[2022-11-04 10:12] LABS: Microscopic, Urine URINE MICROSCOPIC (MICROSCOPIC)
[2022-11-04 10:13] LABS: Appearance,Urine CLEAR (Clear); Bilirubin,Urine Negative (Negative); Blood, Urine Negative (Negative); Color,Urine YELLOW (Yellow); Glucose,Urine (UA) Negative (Negative); Ketones,Urine Negative (Negative); Leukocyte Esterase,Urine Negative (Negative); Nitrate,Urine Negative (Negative); Protein,Urine Negative (Negative); Specific Gravity, Urine >= 1.030 (1.005-1.030); Urobilinogen,Urine 0.2 EU/dl (0.2)
--- NOTE | 2022-11-04 10:21 | EXP.UTC ---
Discharge Plan Disposition Patient Disposition: Home, Self-Care Condition: Good Prescriptions Prescriptions: New phenazopyridine [Pyridium] 200 mg tablet 200 mg PO Q8H 2 Days Qty: 6 0RF sulfamethoxazole-trimethoprim [Bactrim DS] 800-160 mg Tablet 1 tab PO BID 5 Days Qty: 10 0RF No Action naproxen 500 mg tablet 500 mg PO BID PRN (Reason: pain) Qty: 20 0RF Referrals Follow up/Referrals: Rohit Coronel MD [Primary Care Provider] - See instructions Activity Restrictions/Add. Instructions Additional Instructions/Restrictions: Drink plenty of fluids. Take tylenol or ibuprofen for pain or fever. Take the medications as directed. Follow up with your regular doctor. GO TO THE ER FOR ANY WORSENING SYMPTOMS The pyridium will make your urine turn orange, this is an expected side effect. It will stain your clothes if it comes into contact with them. We will culture the urine. That will tell what bacteria is causing your infection and which antibiotics will treat it best. Sometimes the first antibiotic we prescribe turns out to not work against different bacteria. So, make sure you follow up within 3 days if you are not getting better. Clinical Impressions Clinical Impression: UTI (urinary tract infection) Stand Alone Forms Stand Alone Forms: Work/School Release Instructions Patient Instructions: Urinary Tract Infection, DI for Urinary Tract Infection (UTI) Discharge ED [place] Vamshi Tsai [facility] [place] General Stated complaint: urge to urinate Time Seen by Provider: 11/04/22 10:21 History of Present Illness Provider Complaint: she states that she has had urinary frequency and low back pain for the past 2 days. Related Data Previous Rx's Medication Instructions Recorded naproxen 500 mg tablet 500 mg PO BID PRN pain #20 tabs 07/05/22 phenazopyridine 200 mg tablet 200 mg PO Q8H 2 days #6 tabs 11/04/22 (Pyridium) sulfamethoxazole 800 1 tab PO BID 5 days #10 tabs 11/04/22 mg-trimethoprim 160 mg tablet (Bactrim DS) Allergies Allergy/AdvReac Type Severity Reaction Status Date / Time No Known Allergies Allergy Verified 11/04/22 10:26 [facility] Disclaimer: The information contained in this section may have been updated after the patient was seen, as this information can be updated by other users. 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 Anxiety Urinary tract infection 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 History of 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 Smoking Status: Current every day smoker alcohol intake: never substance use type: former substance user and marijuana current occupational status: other Travel in the last 8 weeks: None household members: family housing: house caffeine: Yes ROS Obtained: Yes All systems reviewed & no additional complaints except as documented Constitutional Constitutional: Reports system reviewed and no additional complaints, except as documented, Denies chills and Denies fever(s) Eyes Eyes: Denies eye discharge ENT Ears, Nose, Mouth, and Throat: Denies dysphagia, Denies sore throat and Denies throat swelling Cardiovascular Cardiovascular: Denies chest pain and Denies dyspnea Respiratory Respiratory: Denies chest congestion, Denies cough and Denies dyspnea Gastrointestinal Gastrointestingal: Denies abdominal pain, constipation, diarrhea, dysphagia, nausea or vomiting Genitourinary Female Genitourinary: Reports as per HPI, Reports dysuria, Reports urinary frequency, Denies urinary incontinence, Reports urinary hesitancy and Reports urinary urgency Musculoskeletal Musculoskeletal: Denies arthralgias and Reports back pain Integumentary/Breasts Skin/Breast: Denies rash Neurologic Neurologic: Denies paresthesias Allergic/Immunologic Allergic/Immunologic: Denies throat swelling Physical Exam General Ge
[2022-11-04 10:29] LABS: Bacteria,Urine Trace /lpf; Squamous Epithelial Cell,Urine Occasional #/hpf (0-5); WBC,Urine Occasional #/hpf (0-3)
[2022-11-04 11:00] VITALS: BP 123/55; PULSE 129; RESP 18; TEMP 36.8; O2SAT 97
== END 2022-11-04 11:00 | disposition home or self-care (01) ==
PROVIDERS: Emergency Provider Nurse Practitioner Family; PCP Family Medicine
DX: N39.0 Urinary tract infection, site not specified (principal); M54.59 Other low back pain; F41.9 Anxiety disorder, unspecified; F17.210 Nicotine dependence, cigarettes, uncomplicated; B95.1 Streptococcus, group B, as the cause of diseases classified elsewhere
CPT/HCPCS: 81001; 87086; 87186; 99212; 99214; G0463

== ENCOUNTER 2022-11-14 17:38 | Emergency (ER) | payer OTHER, SELFPAY ==
[2022-11-14 18:00] VITALS: BP 120/78; PULSE 78; RESP 18; TEMP 36.9; O2SAT 98; BMI 35.1
[2022-11-14 18:13] LABS: Microscopic, Urine URINE MICROSCOPIC (MICROSCOPIC)
[2022-11-14 18:17] LABS: Appearance,Urine SL CLOUDY (Clear); Bilirubin,Urine Negative (Negative); Blood, Urine Negative (Negative); Color,Urine YELLOW (Yellow); Glucose,Urine (UA) Negative (Negative); Ketones,Urine Negative (Negative); Leukocyte Esterase,Urine Negative (Negative); Nitrate,Urine Negative (Negative); Protein,Urine Negative (Negative); Specific Gravity, Urine 1.015 (1.005-1.030); Urobilinogen,Urine 0.2 EU/dl (0.2)
[2022-11-14 18:20] LABS: UTC Pregnancy Test, Urine Negative (Negative)
--- NOTE | 2022-11-14 18:25 | EXP.UTC ---
Discharge Plan Disposition Patient Disposition: Home, Self-Care Condition: Good Prescriptions Prescriptions: New amoxicillin 500 mg capsule 500 mg PO BID 10 Days Qty: 20 0RF ondansetron 4 mg tablet,disintegrating 4 mg PO Q8H PRN (Reason: nausea and vomiting) Qty: 10 0RF Referrals Follow up/Referrals: Rohit Coronel MD [Primary Care Provider] - See instructions Activity Restrictions/Add. Instructions Additional Instructions/Restrictions: Make sure to drink plenty of fluids Follow up with your Family Doctor if symptoms do not improve or immediately if they worsen Return if needed Straight to ER if any life threatening symptoms Take medication as prescribed call back in 48 hours for your urine culture results Clinical Impressions Clinical Impression: Nausea Instructions Patient Instructions: Amoxicillin, DI for Nausea -- Adult Discharge ED Provider: Carol Del Valle [facility] General Stated complaint: having trouble eating and feeling sick Mode of Arrival: Ambulatory Source of Information: Patient Limitations: No Limitations Time Seen by Provider: 11/14/22 18:15 Description of Symptoms (Recalled from Triage Doc. by RN): nasuea, and spotting for 1 week HEENT Symptoms (Recalled from RN notes): Yes Resp Symptoms (Recalled from RN notes): No Skin Symptoms (Recalled from RN notes): No MS Symptoms (Recalled from RN notes): No Functional Status (Recalled from RN notes): n/a History of Present Illness Provider Complaint: Patient states that she has been having nausea for about a week that is worse when she smells food or tries to eat States that she was worried she may be and wanted to get a test States she was seen and treated for UTI a few weeks ago not sure if that may be causing her stomach upset or not Related Data Previous Rx's Medication Instructions Recorded amoxicillin 500 mg capsule 500 mg PO BID 10 days #20 caps 11/14/22 ondansetron 4 mg disintegrating 4 mg PO Q8H PRN nausea and 11/14/22 tablet vomiting #10 tabs Allergies Allergy/AdvReac Type Severity Reaction Status Date / Time No Known Allergies Allergy Verified 11/14/22 18:22 Worker's Comp Is this a Worker's Comp case?: No [facility] Disclaimer: The information contained in this section may have been updated after the patient was seen, as this information can be updated by other users. 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 Anxiety Urinary tract infection 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 History of 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 Smoking Status: Current every day smoker alcohol intake: never substance use type: former substance user and marijuana current occupational status: other Travel in the last 8 weeks: None household members: family housing: house caffeine: Yes ROS Obtained: Yes All systems reviewed & no additional complaints except as documented and Yes Systems reviewed as appropriate & no additional complaints except as documented Constitutional Constitutional: Reports system reviewed and no additional complaints, except as documented, Reports as per HPI, Denies body ache, Denies chills and Denies fever(s) ENT Ears, Nose, Mouth, and Throat: Reports system reviewed and no additional complaints, except as documented, Reports as per HPI, Denies otalgia, Denies nasal congestion, Denies nasal discharge and Denies sore throat Cardiovascular Cardiovascular: Reports system reviewed and no additional complaints, except as documented and Reports as per HPI Respiratory Respiratory: Reports system reviewed and no additional complaints, except as documented and Reports as per HPI Gastrointestinal Gastrointestingal: Reports system reviewed and no additional complaints, except as documented, as per HPI and nausea; Denies abdominal pain, cramping, diarrhea or vomiting Physical Exam General Gen
[2022-11-14 19:05] LABS: Amorphous Sediment,Urine 2+ /lpf; Squamous Epithelial Cell,Urine Occasional #/hpf (0-5)
[2022-11-14 19:13] VITALS: BP 120/78; PULSE 78; RESP 18; TEMP 36.9; O2SAT 98
== END 2022-11-14 19:13 | disposition home or self-care (01) ==
PROVIDERS: Emergency Provider Nurse Practitioner; PCP Family Medicine
DX: R11.0 Nausea (principal); F17.210 Nicotine dependence, cigarettes, uncomplicated; F41.9 Anxiety disorder, unspecified; Z87.440 Personal history of urinary (tract) infections
CPT/HCPCS: 81001; 81025; 99212; 99214; G0463

== ENCOUNTER → 2023-01-14 15:35 | Outpatient (CLI) | payer OTHER, SELFPAY ==
[2023-01-14 18:20] LABS: HCG Qualitative, Serum Negative (Negative)
== END ==
PROVIDERS: PCP Family Medicine; Visit Provider Family Medicine
DX: N91.2 Amenorrhea, unspecified (principal)
CPT/HCPCS: 36415; 84703

== ENCOUNTER 2024-05-07 12:50 | Emergency (ER) | payer OTHER, SELFPAY ==
[2024-05-07 13:13] VITALS: BP 115/78; PULSE 104; RESP 16; TEMP 36.9; O2SAT 100; BMI 15.6
[2024-05-07 13:24] LABS: Microscopic, Urine URINE MICROSCOPIC (MICROSCOPIC)
--- NOTE | 2024-05-07 13:29 | PC.NURSE ---
blood drawn and sent to lab
[2024-05-07 13:35] LABS: Appearance,Urine Clear (Clear); Color,Urine Yellow (Yellow); Glucose,Urine (UA) Negative (Negative); PH,Urine 5.5 (5.0-8.5); Protein,Urine Trace (Negative); Specific Gravity, Urine >= 1.030 (1.005-1.030)
[2024-05-07 13:36] LABS: Coronavirus 19, PCR Not Detected (NotDetected); Influenza A, PCR Not Detected (NotDetected); Influenza B, PCR Not Detected (NotDetected)
[2024-05-07 13:36] LABS: Bacteria,Urine Trace /lpf; Bilirubin,Urine Negative (Negative); Blood, Urine Negative (Negative); Ketones,Urine Negative (Negative); Leukocyte Esterase,Urine Negative (Negative); Nitrate,Urine Negative (Negative); RBC,Urine Occasional #/hpf (0-3); Urobilinogen,Urine 0.2 EU/dl (0.2); WBC,Urine Occasional #/hpf (0-3)
[2024-05-07 13:39] LABS: Basophils % 0.3 % (0.1-2.0); Eosinophils # 0.1 K/mm3 (0.0-0.4); Eosinophils % 0.6 % (0.1-12.0); Hematocrit 40.3 % (37.0-47.0); Hemoglobin 12.6 g/dL (12.2-16.2); Lymphocytes # 1.5 K/mm3 (0.7-4.5); Lymphocytes % 15.3 % (10-50); Mean Corpuscular HGB Conc 31.3 g/dL (31.8-35.4); Mean Corpuscular Hemoglobin 24.2 pg (27.0-31.2); Mean Corpuscular Volume 77.4 fl (81-99); Mean Platelet Volume 10.8 fl (7.4-10.4); Monocytes # 0.6 K/mm3 (0.1-1.0); Monocytes % 6.4 % (1.7-9.3); Neutrophils # 7.5 K/mm3 (1.8-7.8); Neutrophils % 77.1 % (37.0-80.0); Platelet Count 331 K/mm3 (142-424); Red Blood Count 5.21 M/mm3 (4.20-5.40); White Blood Count 9.7 K/mm3 (4.8-10.8)
[2024-05-07 13:42] LABS: Urine Pregnancy, HCG Qual. Negative (Negative)
[2024-05-07 14:01] LABS: Alanine Aminotransferase 15 U/L (12-78); Albumin Level 5.1 g/dl (3.5-5.0); Albumin/Globulin Ratio 2.1 (1.1-1.8); Alkaline Phosphatase 77 U/L (38-126); Anion Gap 12.8 mEq/L (5-15); Aspartate Amino Transferase 24 U/L (14-36); Bilirubin,Total 0.5 mg/dl (0.2-1.3); Blood Urea Nitrogen 10 mg/dl (7-17); Calcium 8.7 mg/dl (8.4-10.2); Carbon Dioxide 23 mmol/L (22.0-30.0); Chloride 105 mmol/L (98-107); Creatinine Clearance Estimated 84 mL/min (50-200); Estimated Glomerular Filt Rate 125 ml/min (>60); GFR (African American) 151 ML/MIN (>60); Globulin 2.4 g/dL (1.3-3.2); Glucose 89 mg/dl (74-100); Lipase 52 U/L (23-300); Potassium 3.8 mmoL/L (3.5-5.1); Sodium 137 mmol/L (136-145); Total Protein,Serum 7.5 g/dl (6.3-8.2)
[2024-05-07] MEDS: DICYCLOMINE 10MG CAPSULE 10 MG PO (15:05)
[2024-05-07 16:31] VITALS: BP 112/71; PULSE 93; RESP 18; TEMP 36.9; O2SAT 99
--- NOTE | 2024-05-07 17:03 | ED_ITS ---
Discharge Plan Disposition Patient Disposition: Home, Self-Care Condition: Good Prescriptions Prescriptions: New dicyclomine 10 mg capsule 10 mg PO BID Qty: 7 0RF No Action ekinooyicrkuqhn-dvtlogcmd-XL [Bromfed DM] 2-30-10 mg/5 mL syrup 5 ml PO Q4-6H PRN (Reason: sinus symptoms) Qty: 118 0RF Referrals Follow up/Referrals: Rohit Coronel MD [Primary Care Provider] - See instructions Activity Restrictions/Add. Instructions Additional Instructions/Restrictions: Today your workup in the emergency department was unremarkable. Your urine is not infected. Please take the dicyclomine as directed. Increase your fluid intake. Eat a bland diet. Follow-up with your PCP within 7 days. Please return to the ED for any worsening of condition. Clinical Impressions Clinical Impression: Abdominal pain Qualifiers: Abdominal location: generalized Qualified Code(s): R10.84 - Generalized abdominal pain Instructions Patient Instructions: DI for Acute Abdominal Pain Print Language Print Language: Bulgarian Discharge ED Provider: Sam Arellano General Adult HPI <Tanvi Tam APRN - Last Filed: 05/07/24 17:06> General Chief complaint: Abdominal Pain Stated complaint: pain in abd/back fever 100.4 Time Seen by Provider: 05/07/24 13:05 Mode of Arrival: Ambulatory Source of Information: Patient Description of Symptoms (Recalled from ER Triage Doc. by RN): pt presents to ED c/o abdominal pain and mid to low back pain that started last night. pt reports nausea denies vomiting or diarrhea. pt denies burning with urination. History of Present Illness HPI narrative: patient is a 23-year-old female no significant PMHx who presents to the ED for generalized abdominal pain, worse in the lower aspect times several days. Patient states for 3 days she has had fever, chills and bodyaches. Related Data Previous Rx's ?Medication ?Instructions ?Recorded fzkuhvsmylqyezh-uivjeljdctcirit-ES 5 ml PO Q4-6H PRN sinus symptoms 04/07/24 2 mg-30 mg-10 mg/5 mL oral syrup #118 mL (Bromfed DM) dicyclomine 10 mg capsule 10 mg PO BID #7 caps 05/07/24 Allergies Allergy/AdvReac Type Severity Reaction Status Date / Time No Known Allergies Allergy Verified 04/07/24 08:50 PFSH <Tanvi Tam APRN - Last Filed: 05/07/24 17:06> [facility] Disclaimer: The information contained in this section may have been updated after the patient was seen, as this information can be updated by other users. 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 Anxiety Urinary tract infection 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 History of 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 Smoking Status: Unknown if ever smoked alcohol intake: never substance use type: former substance user and marijuana current occupational status: other Travel in the last 8 weeks: None household members: family housing: house caffeine: Yes Have you lived/traveled outside US in past 30 days?: No Contact w/someone who lives/traveled outside US past 30 days?: No Exposure to someone with infectious disease in past 14 days?: No Do you have a fever (greater than 100.4 F or 38 C)?: Yes Have you tested positive for COVID-19: No Exposed to someone with COVID-19 in past 14 days?: No Do you have a sore throat?: No Do you have a cough?: No Do you have any weakness?: No Do you have any diarrhea?: No Are you experiencing any unusual bleeding?: No Do you have any muscle aches/pain?: Yes Do you have any abdominal pain?: Yes Are you experiencing loss of taste or smell?: No Other 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 Have you received the Flu Vaccine for this season: No Have you received the Pneumonia Vaccine: No <Tanvi Tam APRN - Last Filed: 05/07/24 17:06> ROS Obtained: Yes Systems reviewed as appropriate & no additional complaints except as documented Physical Exam <Tanvi Tam APRN - Last Filed: 05/07/24 17:06> General General appearance: alert and in no apparent distress Head Head exam: atraumatic and normocephalic Eye Eye exam: Present normal appearance and PERRL ENT ENT exam: Present normal exam Neck Neck exam: Present normal inspection Chest Chest inspection: Present normal inspection and symmetric chest wall rise; Absent tenderness Respiratory Respiratory exam: Present normal lung sounds bilaterally Cardiovascular Cardiovascular exam: Present regular rate Abdominal Exam Abdominal exam: Present soft and normal bowel sounds; Absent tenderness Extremities Exam Extremities exam: Present normal inspection and full ROM Back Exam Back exam: Present normal inspection and full ROM Neurological Exam Neurological exam: Present alert and oriented X3 Psychiatric Psychiatric exam: Present normal affect and normal mood Skin Skin exam: Present warm and dry Medical Decision Making <Tanvi Tam APRN - Last Filed: 05/07/24 17:06> Medical Records Screening: Per USPSTF and CDC recommendations, given the prevalence of disease in our region, it is our hospital?s policy to screen for HIV and viral Hepatitis for all patients aged 18 and over and those with ongoing risk factors. Fercho Inquiry Pt receiving controlled substance: No Fercho was queried for this patient: No Vital Signs: 05/07/24 13:13 05/07/24 16:31 Temperature 98.4 F 98.4 F Temperature Source Oral Pulse Rate 93 H Pulse Rate [Right Radial] 104 H Respiratory Rate 16 18 Blood Pressure 112/71 Blood Pressure [Right Arm] 115/78 Blood Pressure Mean [Right Arm] 90 Blood Pressure Source [Right Arm] Automatic Cuff Blood Pressure Position [Right Arm] Sitting 02 Sat by Pulse Oximetry 100 Oxygen Delivery Method Room Air Lab Data Lab Results 05/07/24 13:17: Urine Color Yellow, Urine Appearance Clear, Urine pH 5.5, Ur Specific [place] >= 1.030, Urine Protein Trace A, Urine Glucose (UA) Negative, Urine Ketones Negative, Urine Blood Negative, Urine Nitrate Negative, Urine Bilirubin Negative, Urine Urobilinogen 0.2, Ur Leukocyte Esterase Negative, Urine RBC Occasional, Urine WBC Occasional, Ur Squamous Epith Cells 5-10, Urine Bacteria Trace, Urine HCG, Qual Negative 05/07/24 13:29: WBC 9.7, RBC 5.21, Hgb 12.6, Hct 40.3, MCV 77.4 L, MCH 24.2 L, M CHC 31.3 L, RDW 16.0, Plt Count 331, MPV 10.8 H, Neut % (Auto) 77.1, Lymph % (Auto) 15.3, [place] % (Auto) 6.4, Eos % (Auto) 0.6, Baso % (Auto) 0.3, Neut # (Auto) 7.5, Lymph # (Auto) 1.5, [place] # (Auto) 0.6, Eos # (Auto) 0.1, Baso # (Auto) 0.0, Sodium 137, Potassium 3.8, Chloride 105, Carbon Dioxide 23, Anion Gap 12.8, BUN 10, Creatinine 0.60, Estimated Creat Clear 84, Estimated GFR 125, Est GFR ( Amer) 151, Glucose 89, Calcium 8.7, Total Bilirubin 0.5, AST 24, ALT 15, Alkaline Phosphatase 77, Total Protein 7.5, Albumin 5.1 H, Globulin 2.4, Albumin/Globulin Ratio 2.1 H, Lipase 52, SARS-CoV-2 (PCR) Not detected, Influenza A Untype (PCR) Not detected, Influenza Type B (PCR) Not detected 05/07/24 13:29 05/07/24 13:29 Orders (Tests/Meds): ED MEDICATIONS Discontinued Medications Generic Name Dose Route Start Last Admin Trade Name Freq PRN Reason Stop Dose Admin Dicyclomine HCl 10 mg 05/07/24 15:02 05/07/24 15:05 Dicyclomine 10mg Capsule PO 05/07/24 15:03 10 mg ONCE ONE Administration ORDERS Category Date Time Status Complete Blood Count Auto Diff Stat Lab 05/07/24 13:29 Completed Comprehensive Metabolic Panel Stat Lab 05/07/24 13:29 Completed Lipase Stat Lab 05/07/24 13:29 Completed Rapid PCR Covid and Flu A/B Stat Lab 05/07/24 13:29 Completed Urinalysis and Microscopic Stat Lab 05/07/24 13:17 Completed Urine , HCG Qual. Stat Lab 05/07/24 13:17 Completed Medical Decision Narrative: In summary, patient is a 23-year-old female no significant PMHx who presents to the ED for generalized abdominal pain, worse in the lower aspect times several days. Patient states for 3 days she has had fever, chills and bodyaches. Denies taking any medication prior to arrival. Denies any additional medical complaints. Upon initial exam, patient is alert, oriented and cooperative. Patient is hemodynamically stable. Physical exam unremarkable, no flank tenderness, abdomen is soft and nontender upon palpation. For Differential diagnosis includes COVID, influenza, UTI, pyelonephritis, , among others. Initial workup will be conducted with hematologic labs. Patient declined medication for symptomatic management. Initial workup reviewed by me. CBC unremarkable for any leukocytosis, stable H&H. CMP unremarkable for any actionable abnormalities. Urinalysis remarkable for trace amount of protein. test negative. I considered additional testing but deferred due to normal labs, patient is tolerating PO, she still does not want medication at this time. Given this, I feel the patient is safe to be discharged home. Discussed following up with PCP within 7 days. Discussed return precautions to the ED and patient verbalized understanding. <Sam Arellano MD - Last Filed: 05/07/24 18:05> Vital Signs: 05/07/24 13:13 05/07/24 16:31 Temperature 98.4 F 98.4 F Temperature Source Oral Pulse Rate 93 H Pulse Rate [Right Radial] 104 H Respiratory Rate 16 18 Blood Pressure 112/71 Blood Pressure [Right Arm] 115/78 Blood Pressure Mean [Right Arm] 90 Blood Pressure Source [Right Arm] Automatic Cuff Blood Pressure Position [Right Arm] Sitting 02 Sat by Pulse Oximetry 100 Oxygen Delivery Method Room Air Lab Data Lab Results 05/07/24 13:17: Urine Color Yellow, Urine Appearance Clear, Urine pH 5.5, Ur Specific [place] >= 1.030, Urine Protein Trace A, Urine Glucose (UA) Negative, Urine Ketones Negative, Urine Blood Negative, Urine Nitrate Negative, Urine Bilirubin Negative, Urine Urobilinogen 0.2, Ur Leukocyte Esterase Negative, Urine RBC Occasional, Urine WBC Occasional, Ur Squamous Epith Cells 5-10, Urine Bacteria Trace, Urine HCG, Qual Negative 05/07/24 13:29: WBC 9.7, RBC 5.21, Hgb 12.6, Hct 40.3, MCV 77.4 L, MCH 24.2 L, M CHC 31.3 L, RDW 16.0, Plt Count 331, MPV 10.8 H, Neut % (Auto) 77.1, Lymph % (Auto) 15.3, [place] % (Auto) 6.4, Eos % (Auto) 0.6, Baso % (Auto) 0.3, Neut # (Auto) 7.5, Lymph # (Auto) 1.5, [place] # (Auto) 0.6, Eos # (Auto) 0.1, Baso # (Auto) 0.0, Sodium 137, Potassium 3.8, Chloride 105, Carbon Dioxide 23, Anion Gap 12.8, BUN 10, Creatinine 0.60, Estimated Creat Clear 84, Estimated GFR 125, Est GFR ( Amer) 151, Glucose 89, Calcium 8.7, Total Bilirubin 0.5, AST 24, ALT 15, Alkaline Phosphatase 77, Total Protein 7.5, Albumin 5.1 H, Globulin 2.4, Albumin/Globulin Ratio 2.1 H, Lipase 52, SARS-CoV-2 (PCR) Not detected, Influenza A Untype (PCR) Not detected, Influenza Type B (PCR) Not detected Orders (Tests/Meds): ED MEDICATIONS Discontinued Medications Generic Name Dose Route Start Last Admin Trade Name Babita PRN Reason Stop Dose Admin Dicyclomine HCl 10 mg 05/07/24 15:02 05/07/24 15:05 Dicyclomine 10mg Capsule PO 05/07/24 15:03 10 mg ONCE ONE Administration ORDERS Category Date Time Status Complete Blood Count Auto Diff Stat Lab 05/07/24 13:29 Completed Comprehensive Metabolic Panel Stat Lab 05/07/24 13:29 Completed Lipase Stat Lab 05/07/24 13:29 Completed Rapid PCR Covid and Flu A/B Stat Lab 05/07/24 13:29 Completed Urinalysis and Microscopic Stat Lab 05/07/24 13:17 Completed Urine , HCG Qual. Stat Lab 05/07/24 13:17 Completed Medical Decision Narrative: In summary, patient is a 23-year-old female no significant PMHx who presents to the ED for generalized abdominal pain, worse in the lower aspect times several days. Patient states for 3 days she has had fever, chills and bodyaches. Denies taking any medication prior to arrival. Denies any additional medical complaints. Upon initial exam, patient is alert, oriented and cooperative. Patient is hemodynamically stable. Physical exam unremarkable, no flank tenderness, abdomen is soft and nontender upon palpation. For Differential diagnosis includes COVID, influenza, UTI, pyelonephritis, , among others. Initial workup will be conducted with hematologic labs. Patient declined medication for symptomatic management. Initial workup reviewed by me. CBC unremarkable for any leukocytosis, stable H&H. CMP unremarkable for any actionable abnormalities. Urinalysis remarkable for trace amount of protein. test negative. I considered additional testing but deferred due to normal labs, patient is tolerating PO, she still does not want medication at this time. Given this, I feel the patient is safe to be discharged home. Discussed following up with PCP within 7 days. Discussed return precautions to the ED and patient verbalized understanding. I was consulted by the GEENA, and we discussed the complexity of the problems being addressed. I approved the treatment and management plan for this patient's care in the Emergency Department, thus performing a substantive portion of the medical decision making. Sam Arellano MD Critical Care <Tanvi Tam, SUPERVISOR PUBLIC MESSAGE SERVICE - Last Filed: 05/07/24 17:06> Critical Care Time Critical Care Time: No
== END 2024-05-07 16:33 | disposition home or self-care (01) ==
PROVIDERS: Emergency Medicine; Emergency Provider Emergency Medicine; PCP Family Medicine
DX: R10.84 Generalized abdominal pain (principal); M54.50 Low back pain, unspecified; R11.0 Nausea; R50.9 Fever, unspecified; R52 Pain, unspecified
CPT/HCPCS: 80053; 81001; 81025; 83690; 85025; 87636; 99283

== ENCOUNTER 2024-05-12 22:08 | Emergency (ER) | payer OTHER, SELFPAY ==
[2024-05-12 22:15] VITALS: BP 129/84; PULSE 73; RESP 20; TEMP 36.7; O2SAT 98; BMI 24.2
[2024-05-12] MEDS: DOXYCYCLINE HYCL 100 MG TABLET PO (22:44)
[2024-05-12 22:49] VITALS: BP 129/84; PULSE 73; RESP 20; TEMP 36.7; O2SAT 99
--- NOTE | 2024-05-12 23:28 | ED_ITS ---
Discharge Plan Disposition Patient Disposition: Home, Self-Care Condition: Good Prescriptions Prescriptions: No Action qhlxigplyeasmnq-azlotxgew-NG [Bromfed DM] 2-30-10 mg/5 mL syrup 5 ml PO Q4-6H PRN (Reason: sinus symptoms) Qty: 118 0RF dicyclomine 10 mg capsule 10 mg PO BID Qty: 7 0RF Referrals Follow up/Referrals: Rohit Coronel MD [Primary Care Provider] - See instructions Activity Restrictions/Add. Instructions Additional Instructions/Restrictions: You were evaluated in the emergency department today. Return to the emergency department for new or worsening symptoms. Clinical Impressions Clinical Impression: Tick bite of lower leg Instructions Patient Instructions: How to Remove a Tick, Protect Yourself from Tickborne Illnesses Print Language Print Language: Luxembourgish Discharge ED Provider: Richelle Flores General Adult HPI General Chief complaint: Skin/Abscess/Foreign Body Stated complaint: tick on RT leg Time Seen by Provider: 05/12/24 22:30 Mode of Arrival: Ambulatory Source of Information: Patient Description of Symptoms (Recalled from ER Triage Doc. by RN): pt reports a tick bite on her right calf that she was unable to remove herself History of Present Illness HPI narrative: This patient is a 23-year-old female who denies significant past medical history presenting to the emergency department for evaluation with concern for a tick stuck in her right lower leg. She tried to remove it at home but was unable. She states she thinks she [place] today [place] the park. She did not notice anything prior to that. No other concerns or complaints noted at this time. Related Data Previous Rx's ?Medication ?Instructions ?Recorded haesdbxbonvptca-dwkuptvhslvwjna-MM 5 ml PO Q4-6H PRN sinus symptoms 04/07/24 2 mg-30 mg-10 mg/5 mL oral syrup #118 mL (Bromfed DM) dicyclomine 10 mg capsule 10 mg PO BID #7 caps 05/07/24 Allergies Allergy/AdvReac Type Severity Reaction Status Date / Time No Known Allergies Allergy Verified 04/07/24 08:50 [facility] Disclaimer: The information contained in this section may have been updated after the patient was seen, as this information can be updated by other users. 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 Urinary tract infection Anxiety 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 History of 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 Smoking Status: Current every day smoker alcohol intake: never substance use type: former substance user and marijuana current occupational status: other Travel in the last 8 weeks: None household members: family housing: house caffeine: Yes Have you lived/traveled outside [place] in past 30 days?: No Contact w/someone who lives/traveled outside US past 30 days?: No Exposure to someone with infectious disease in past 14 days?: No Do you have a fever (greater than 100.4 F or 38 C)?: No Have you tested positive for COVID-19: No Exposed to someone with COVID-19 in past 14 days?: No Do you have a sore throat?: No Do you have a cough?: No Do you have any weakness?: No Do you have any diarrhea?: No Are you experiencing any unusual bleeding?: No Do you have any muscle aches/pain?: No Do you have any abdominal pain?: No Are you experiencing loss of taste or smell?: No Other 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 Have you received the Flu Vaccine for this season: No Have you received the Pneumonia Vaccine: No ROS Obtained: Yes All systems reviewed & no additional complaints except as documented Physical Exam General General appearance: alert and in no apparent distress Head Head exam: atraumatic and normocephalic Eye Eye exam: Present normal appearance, PERRL and EOMI ENT ENT exam: Present normal exam, normal oropharynx, mucous membranes moist and normal external ear exam Neck Neck exam: Present normal inspection, full ROM and trachea midline; Absent tenderness Chest Chest inspection: Present normal inspection and symmetric chest wall rise; Absent tenderness Respiratory Respiratory exam: Present normal lung sounds bilaterally; Absent respiratory distress, wheezes, stridor or accessory muscle use Cardiovascular Cardiovascular exam: Present regular rate and normal rhythm Abdominal Exam Abdominal exam: Present soft; Absent distention, tenderness or guarding Extremities Exam Extremities exam: Present full ROM and normal capillary refill; Absent tenderness or edema Expanded Lower Extremity Exam Right: Leg image: 2 1. Small, not engorged tick with very small area of localized erythema Back Exam Back exam: Present normal inspection and full ROM; Absent tenderness Neurological Exam Neurological exam: Present alert, oriented X3, CN II-XII intact and normal gait; Absent motor sensory deficit Psychiatric Psychiatric exam: Present normal affect and normal mood Skin Skin exam: Present warm and dry Medical Decision Making Medical Records Medical records reviewed: Yes I reviewed the patient's medical records. Screening: Per USPSTF and CDC recommendations, given the prevalence of disease in our region, it is our hospital?s policy to screen for HIV and viral Hepatitis for all patients aged 18 and over and those with ongoing risk factors. Fercho Inquiry Pt receiving controlled substance: No Vital Signs: 05/12/24 22:15 05/12/24 22:49 Temperature 98.1 F 98.1 F Temperature Source Oral Pulse Rate 73 Pulse Rate [Right] 73 Respiratory Rate 20 20 Blood Pressure 129/84 Blood Pressure [Right Arm] 129/84 Blood Pressure Mean [Right Arm] 99 02 Sat by Pulse Oximetry 98 Oxygen Delivery Method Room Air Lab Data Lab results reviewed: Yes I reviewed the patient's lab results. Orders (Tests/Meds): ED MEDICATIONS Discontinued Medications Generic Name Dose Route Start Last Admin Trade Name Babita PRN Reason Stop Dose Admin Doxycycline Hyclate 100 mg 05/12/24 22:37 05/12/24 22:44 Doxycycline Hycl 100 Mg Tablet PO 05/12/24 22:38 100 mg ONCE ONE Administration Medical Decision Narrative: In summary, this patient is a 23-year-old female presenting to the Emergency Department for evaluation of tick in her right lower leg. Differential diagnoses considered include but are not limited to tick bite, tick borne illness. Ruling out the most morbid conditions drove assessment. On exam, patient has a known engorged tick in her right lower extremity that does not seem to be particularly embedded. I was able to remove it easily with forceps. She has very localized erythema without rashes, no constitutional symptoms. She thinks she got it today while at the park. I feel she is very very low risk for tickborne illness, as we are not in an endemic area for Lyme disease, it was not engorged, and it likely just attached today. Patient still expresses concern so she was given a one-time dose of doxycycline here for prophylaxis. At this time, feel she is appropriate for discharge home. Strict return precautions were given Procedures Foreign Body Removal Time Out Performed: Yes Site: right Description of foreign body: insect Sedation/Analgesia: none Technique: removal with forceps Confirmed by:: direct visualization Complications: none Post-procedure exam: awake, alert, normal BP, normal HR and normal O2 sat Neurovascular: normal distal pulse, normal capillary fill, distal light touch sensation intact, distal motor function normal, no signs of compartment syndrome and no change from pre-procedure Critical Care Critical Care Time Critical Care Time: No
== END 2024-05-12 22:50 | disposition home or self-care (01) ==
PROVIDERS: Emergency Provider Emergency Medicine; PCP Family Medicine
DX: S80.861A Insect bite (nonvenomous), right lower leg, initial encounter (principal); W57.XXXA Bitten or stung by nonvenomous insect and other nonvenomous arthropods, initial encounter; Y93.89 Activity, other specified; Y92.9 Unspecified place or not applicable
CPT/HCPCS: 99283

== ENCOUNTER 2024-09-14 20:05 | Emergency (ER) | payer OTHER, SELFPAY ==
--- OUTSIDE RECORDS SUMMARY | 2023-11-18 11:15 | XMS_ITS ---
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 Encounters Encounter Location Date Provider Diagnosis [facility] [facility] [address] [place] [id number] 11/18/2023 Noreen Sargent Plan Of Treatment No Information Progress Notes * Panda MACKOB:2000 (23 yo F)Acc No.[id number]:11/18/2023 Progress Notes Patient: Alisa ROBLERO Provider: BUD Jerome :2000 A ge:22 Y S ex:Female Date:11/18/2023 Address:[address] [place] [address] [address] [place], [id number] Pcp:Rohit Coronel Subjective: * Chief Complaints: * 1 . Possible yeast inf.. * HPI: G YN: Pt is here today with a possible yeast infection itching burning redness soreness. * ROS: C ARDIOLOGY: no D izziness. n o C hest pain. D ERMATOLOGY: no R nicolle. n o H ariadna. G ASTROENTEROLOGY: no N ausea. n o V omiting. * 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: M igraine Headache, Anxiety Disorder. * 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: T onsilectomy, Adenoidectomy 02/27/2013. * Hospitalization/Major Diagno stic Procedure: R T Knee Pain- [facility] 11/2015, Chest Pain- [facility] 09/2017, Rash- [facility] 05/12/2018, Panic Attack- [facility] 08/2018. * Family History: F ather: alive. M other: alive. 1 brother(s) . 1 daughter(s) . . * 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: C URRENT TOBACCO USE S moking Status: Patient does NOT smoke, Second hand smoke exposure: Yes. C affeine: no. Home smoke detector use: yes. Past smoking status: no. Sexually active: yes. * Allergies: N .K.D.A. 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
[2024-09-14] VITALS (17 sets, daily range): BP systolic 118–133; BP diastolic 80–102; PULSE 75–87; RESP 14–21; TEMP 36.9; O2SAT 99–100; BMI 15.6
--- NOTE | 2024-09-14 20:25 | ECG_ITS ---
APPROVED REPORT Exam: Resting ECG HR:90 bpm ECG Measurements Heart Rate 90 AXES NC 146 P 74 QRSd 91 QRS 85 QT 338 T 62 QTc 385 Conclusion SINUS RHYTHM POSSIBLE RIGHT VENTRICULAR CONDUCTION DELAY [RSR (QR) IN V1/V2] BORDERLINE ECG UNCONFIRMED REPORT Electronically signed by : ALIYA GARCIA, 09/16/2024 01:21:50
--- NOTE | 2024-09-14 20:29 | XR_ITS ---
PROCEDURE INFORMATION: Exam: XR Chest Exam date and time: 09/14/2024 8:44 PM Age: 23 years old Clinical indication: Shortness of breath; Additional info: SOB TECHNIQUE: Imaging protocol: Radiologic exam of the chest. Views: 1 view. COMPARISON: CR XR CHEST 2V 05/09/2022 12:29 PM FINDINGS: Lungs: Unremarkable. No consolidation. Pleural spaces: Unremarkable. No pleural effusion. No pneumothorax. Heart/Mediastinum: Unremarkable. No cardiomegaly. Bones/joints: Unremarkable. IMPRESSION: No acute findings.
--- OUTSIDE RECORDS SUMMARY | 2024-09-14 20:46 | XMS_ITS | Patient Health Record ---
[facility] [address] [place] [id number] Care Team Providers Care Senior Qualitative Researcher Name Role Phone Berna Rohit Primary Care Provider [phone] Leonardo Clement Unavailable [phone] Noreen Sargent Unavailable [phone] Allergies No Known Allergies Medications Medication SIG (Take, Route, Fr equency, Duration) Notes Start Date End Date Status Nix Creme Rinse 1 % apply to damp hair a nd rinse off after 10 minutes Externally 07/31/2023 Acti ve Immunizations Vaccine Route Administration Date Status Comme nts xGardasil IM Intramuscular 05/20/2014 Administered xGardasil IM Intramuscular 10/06/2014 Administered xFlu shot-36 months and older IM Intramuscular 12/24/2006 Administered xFlu shot-36 months and older IM Intramuscular 01/23/2007 Administered Varivax Unknown 12/01/2002 Administered Varivax SC Subcutaneous 05/20/2014 Administered Tetanus Tdap-Adacel (over 7yrs) IM Intramuscular 05/20/2014 Administered Tetanus Tdap-Adacel (over 7yrs) Unknown 04/27/2021 Administered Tetanus Dtap-Daptacel (under 7yrs) Unknown 01/16/2002 Administered Tetanus Dtap-Daptacel (under 7yrs) Unknown 03/25/2002 Administered Tetanus Dtap-Daptacel (under 7yrs) Unknown 05/22/2002 Administered Tetanus Dtap-Daptacel (under 7yrs) IM Intramuscular 02/27/2006 Administered Prevnar (PCV13) Unknown 12/01/2002 Administered Prevnar (PCV13) Unknown 07/15/2003 Administered MMR Unknown 12/01/2002 Administered MMR SC Subcutaneous 02/27/2006 Administered Menactra IM Intramuscular 05/20/2014 Administered Menactra IM Intramuscular 12/05/2017 Administered IPV Unknown 01/16/2002 Administered IPV Unknown 03/25/2002 Administered IPV Unknown 05/22/2002 Administered IPV IM Intramuscular 02/27/2006 Administered HIB Unknown 01/16/2002 Administered HIB Unknown 03/25/2002 Administered HIB Unknown 05/22/2002 Administered HIB Unknown 12/01/2002 Administered HEPB VACC PED/ADOL DOSE IM Unknown 01/16/2002 Administe red HEPB VACC PED/ADOL DOSE IM Unknown 03/25/2002 Administe red HEPB VACC PED/ADOL DOSE IM Unknown 05/22/2002 Administe red Hep A- Pediatric IM Intramuscular 05/20/2017 Administered Hep A- Pediatric IM Intramuscular 11/20/2017 Administered Gardasil 9 IM Intramuscular 05/17/2015 Administered Gardasil 9 Unknown 05/17/2015 Administered Problems Problem Type SNOMED Code ICD Code Onset Dates Problem Status W/U Status Risk Notes Problem Constipation (40070636) Constipation (K59.00) Active confirmed Problem Anxiety (27452281) Anxiety (F41.9) Active confi rmed Problem Amenorrhea (80278090) Amenorrhea (N91.2) Active confirmed Problem Intermenstrual bleeding - irregular (05346227) Menorrhagia with irregular cycle (N92.1) Active confirmed Problem Gastritis (2388550) Gastritis (K29.70) Active c onfirmed Problem Constipation (21118607) Constipation, unspecified constipation type (K59.00) Active confirmed Problem Gastroesophageal reflux disease (508326567) Gastroesophageal reflux disease, esophagitis presence not specified (K21.9) Active confirmed Problem Migraine (41390255) Migraine wit hout status migrainosus, not intractable, unspecified migraine type (G43.909) Active confirmed Problem Adjustment disorder with anxious mood (67501719) Adjustment disorder with anxious mood (F43.22) Active confirmed Problem Irregular periods (58069462) Irregular bleeding (N92.6) Active confirmed Problem Delayed gastric emptying (418639155) Delayed gastric emptying (K30) Active confirmed Problem Gastroparesis (722248040) Slow gastric motility (K31.84) Active confirmed Plan Of Treatment No Information Insurance Providers Payer Name Payer Address Payer Phone Subscriber Number Group Number Insured Name Patient Relationship to Insured Coverage Start Date Coverage End Date [employer] [facility] [address] [place], [place] [id number] [phone] [id number] Alisa Mack Self - patient is the insured Medical (General) History 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 History ICD Code Migraine Headache Anxiety Disorder 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 Surgery Date(Month/Year) Tonsilectomy, Adenoidectomy 02/27/2013 Hospitalization History Reason Date(Month/Year) RT Knee Pain- [facility] ER 11/2015 Chest Pain- [facility] ER 09/2017 Rash- [facility] ER 05/12/2018 Panic Attack- [facility] ER 08/2018
--- OUTSIDE RECORDS SUMMARY | 2024-09-14 20:47 | XMS_ITS | Clinical Summary ---
Author Organization Healthcare Address [address] [place] [address] Care Team Providers Care Director Foundation Name Role Phone Rohit Coronel MD Primary Care Provider + [phone] Allergies No known active allergies Medications MV-Min-Fe Fum-FA-DHA ( 1 PO) Take by mouth. Active norelgestromin-e thinyl estradiol (Xulane) 150-35 MCG/24HR Apply 1 patch each week for 3 weeks, then remove for 1 week. 3 patch 12 10/14/2023 Active sertraline (Zoloft) 50 MG tablet Take 1 tablet (50 mg) by mouth 1 (one) time each day. 30 tablet 5 10/31/2023 Active Active Problems Problem Noted Date Diagnosed Date Supervision of other normal , antepartu m 02/12/2023 Assessment & Plan (02/12/2023 10:15 AM EST): - TVUS: intrauterine gestational sac with yolk sac and pole measuring 5w5d, no cardiac activity, left simple cyst measuring 3 cm, normal right adnexa, no free fluid - discussed likely early with patient - no concerns for ectopic on ultrasound - antiemetics sent - precautions discussed - RTC 7-10 days for initial visit/viability US Resolved Problems Problem Noted Date Diagnosed Date Resolved Date Encounter for visit 07/21/2021 02/12/2023 Assessment & Plan (07/21/2021 11:34 AM EDT): - normal visit today - normal BP - desires patch for contraception - RTC in 1 month for full exam and control Poor growth affecting management of mother in third trimester 05/11/2021 02/12/2023 Assessment & Plan (07/05/2021 4:38 PM EDT): - IOL 07/07 - BPP 8/8 today, normal dopplers and fluid Assessment & Plan (07/03/2021 10:30 AM EDT): - continue weekly BPP - reactive NST today - plan IOL at 39 weeks Assessment & Plan (06/29/2021 11:09 AM EDT): - continue weekly BPP and NST - reactive NST today - plan IOL at 39 weeks Assessment & Plan (06/22/2021 9:46 AM EDT): - continue weekly BPP and NST - US today: normal dopplers and fluid, BPP 8/8 - plan IOL at 39 weeks Assessment & Plan (06/21/2021 10:39 AM EDT): - continue weekly BPP and NST - US tomorrow - plan IOL at 39 weeks Assessment & Plan (06/14/2021 9:47 AM EDT): - continue weekly BPP and NST - normal fluid and dopplers - plan IOL at 39 weeks Assessment & Plan (06/12/2021 9:25 AM EDT): - continue weekly BPP and NST Assessment & Plan (06/07/2021 4:26 PM EDT): US today: vertex, WILDER 6.3, EFW 17%, AC 10%, normal dopplers, BPP 8/8 Weekly BPP and NST Assessment & Plan (06/01/2021 10:12 AM EDT): - continue 2x weekly NST - next growth US 06/07 Assessment & Plan (05/29/2021 12:15 PM EDT): - continue 2x weekly NST - next US 06/07 Assessment & Plan (05/25/2021 10:26 AM EDT): - continue 2x weekly NSTs - growth US ordered for 2 weeks Assessment & Plan (05/11/2021 12:51 PM EDT): - IUGR on US today - repeat growth in 4 weeks - start NSTs at 32 weeks Anemia affecting in third trimester 03/28/1902/12/2023 Assessment & Plan (04/12/2021 11:42 AM EST): IV iron was denied by insurance Continue PO Iron Working on insurance appeal COVID-19 affecting in third trimester 03/27/2021 02/12/2023 Assessment & Plan (07/03/2021 10:30 AM EDT): Continue baby ASA Assessment & Plan (06/29/2021 11:09 AM EDT): Continue baby ASA and 2x weekly NSTs Assessment & Plan (06/26/2021 11:41 AM EDT): Continue baby ASA and 2x weekly NSTs Assessment & Plan (06/22/2021 9:47 AM EDT): Continue baby ASA and 2x weekly NSTs Assessment & Plan (06/14/2021 9:03 AM EDT): Continue baby ASA and 2x weekly NSTs Assessment & Plan (06/01/2021 10:12 AM EDT): Continue baby ASA and 2x weekly NSTs Assessment & Plan (05/29/2021 12:15 PM EDT): Continue baby ASA and 2x weekly NSTs Assessment & Plan (05/25/2021 10:26 AM EDT): Continue baby ASA and 2x weekly NSTs Assessment & Plan (05/11/2021 12:51 PM EDT): - continue baby ASA - start NSTs at 32 weeks Assessment & Plan (05/08/2021 4:28 PM EDT): - continue baby ASA - start NSTs at 32 weeks Assessment & Plan (04/27/2021 11:02 AM EST): - continue baby ASA - start NSTs 2x weekly at 32 weeks Assessment & Plan (04/12/2021 11:43 AM EST): - continue baby ASA - start NSTs at 32 weeks Assessment & Plan (03/27/2021 11:24 AM EST): - baby ASA Rx sent - discussed starting NSTs 2x weekly at 32 weeks 38 weeks gestation of 02/13/2021 02/12/2023 Assessment & Plan (07/05/2021 4:38 PM EDT): - labs reviewed, GBS negative - continue PNV, baby ASA, iron - anticipate - IOL 5/13 AM Assessment & Plan (07/03/2021 10:29 AM EDT): - labs reviewed, GBS negative - continue PNV, baby ASA, iron - anticipate - IOL 513 AM - RTC for weekly BPP Assessment & Plan (06/29/2021 11:09 AM EDT): - labs reviewed, GBS negative - continue PNV, baby ASA, iron - anticipate - IOL 12 - consents signed today - RTC for weekly BPP and NST Assessment & Plan (06/26/2021 11:41 AM EDT): - labs reviewed, GBS negative - continue PNV, baby ASA, iron - anticipate - IOL 12 - sign consents next visit - RTC for weekly BPP and NST Assessment & Plan (06/22/2021 9:47 AM EDT): - labs reviewed, GBS negative - continue PNV, baby ASA, iron - anticipate - IOL 07/06 - RTC for weekly BPP and NST Assessment & Plan (06/21/2021 10:39 AM EDT): - labs reviewed, GBS negative - continue PNV, baby ASA, iron - anticipate - IOL 07/06 - RTC for weekly BPP and NST Assessment & Plan (06/14/2021 9:04 AM EDT): - continue PNV, baby ASA, iron - anticipate - GBS today - RTC for weekly BPP and NST Assessment & Plan (06/12/2021 10:01 AM EDT): - continue PNV, baby ASA, iron - will try pepcid and phenergan for GERD/nausea. Discussed if not able to tolerate PO for > 1 day to go to hospital for IVF - anticipate - GBS at 36 weeks - RTC for weekly BPP and NST Assessment & Plan (06/07/2021 4:27 PM EDT): - continue PNV, baby ASA, iron - anticipate - GBS at 36 weeks - RTC for weekly BPP and NST Assessment & Plan (06/01/2021 10:13 AM EDT): - labs reviewed, - continue PNV, baby ASA, Iron - anticipate - GBS at 36 weeks - RTC for 2x weekly NST and routine visit Assessment & Plan (05/29/2021 12:16 PM EDT): - labs reviewed - continue PNV, baby ASA, Iron - anticipate - GBS at 36 weeks - RTC for 2x weekly NST and routine visit Assessment & Plan (05/25/2021 10:26 AM EDT): - labs reviewed - continue PNV, baby ASA, Iron - growth US ordered for 2 weeks - continue 2x weekly NST and routine visits Assessment & Plan (05/11/2021 12:51 PM EDT): - labs reviewed - continue PNV, baby ASA, Iron - growth US shows IUGR - start NSTs 2x weekly next week Assessment & Plan (05/08/2021 4:29 PM EDT): - contractions improved - labs reviewed - continue PNV, baby ASA, Iron - Growth US 05/11 - RTC for US Assessment & Plan (04/27/2021 11:03 AM EST): - labs reviewed - Tdap and rhogam today - continue PNV, baby ASA, PO Iron - growth US ordered today for S<D - RTC 2 weeks Assessment & Plan (04/12/2021 11:42 AM EST): - labs reviewed - discussed Tdap and rhogam at next visit - continue PNV and baby ASA - RTC 2 weeks Assessment & Plan (03/27/2021 11:23 AM EST): - labs reviewed, normal jenny US - glucola, CBC today - continue PNV - baby ASA Rx sent for COVID - RTC 2 weeks Assessment & Plan (02/27/2021 11:52 AM EST): - jenny US today normal prelim - glucola given for next visit - continue PNV - RTC 4 weeks Assessment & Plan (02/13/2021 11:18 AM EST): - records reviewed - continue PNV - jenny US ordered - RTC 1-2 weeks Immunizations Immunization Administration Dates Next Due DTaP 02/27/2006 HPV 9-Valent 05/17/2015 HPV, Quadrivalent 10/06/2014,05/20/2014 Hep A, ped/adol, 2 dose 11/20/2017,05/20/2017 IPV 02/27/2006 Influenza, seasonal, injectable 11/22/19 12,12/07/2010,12/05/2009,01/05/2008, 01/23/2007,12/24/2006 MMR 02/27/2006 Meningococcal MCV4O 05/20/2014 Meningococcal MCV4P 12/05/2017 Rho (D) Immune Globulin 07/24/2023,04/27/2021 Tdap 07/24/2023,04/27/2021,05/20/2014 Varicella 05/20/2014 Family History 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 Relation Name Comments Cervical cancer Mother Relation Name Status Comments Mother 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 Tobacco Use Types Packs/Day Years Used Date Smoking Tobacco: Never Smokeless Tobacco: Never Tobacco Cessation:Counseling Given: Not Answered Alcohol Use Standard Drinks/Week Comments Never 0 (1 standard drink = 0.6 oz pur e alcohol) PHQ-2 Answer Date Recorded Patient Health Questionnaire-2 Score 0 08/22/2023 Hope Depression Scale Answer Date Recorded Hope Depression Scale Total 0 11/14/2023 The thought of harming myself has occurred to me . Never 11/14/2023 Comments No Sex and Gender Information Value Date Recorded Sex Assigned at Not on file Legal Sex Female 8:10 PM EDT Gender Identity Not on file Sexual Orientation Not on file Last Filed Vital Signs Vital Sign Reading Time Taken Comments Blood Pressure 114/73 11/19/2023 3:46 PM EDT Pulse 74 11/19/2023 3:46 PM EDT Temperature 37 C (98.6 F) 11/19/2023 3:46 PM EDT Respiratory Rate 14 11/19/2023 3:46 PM EDT Oxygen Saturation 98% 11/19/2023 3:46 PM EDT Inhaled Oxygen Concentration - - Weight 39.6 kg (87 lb 4.8 oz) 11/19/2023 3:46 PM EDT Height 152.4 cm (5') 11/19/2023 3:46 PM EDT Body Mass Index 17.05 11/19/2023 3:46 PM EDT Plan of Treatment Health Maintenance Due Date Last Done Comments [facility]-/Child/Adol SDOH Screenings 2001 [facility]-IPV Vaccines (2 of 3 - 4-dose series) 03/27/2006 02/27/2006 [facility]-Varicella Vaccines (2 of 2 - 2-dose childhood series) 08/12/2014 05/20/2014 [facility]- SDOH Screenings 11/23/2019 [facility]-Adult SDOH Screenings 11/23/2019 [facility]-Hepatitis B Vaccines (1 of 3 - 19+ 3-dose series) 2020 [facility]-Pap Smear 2022 [id number] Vaccine ( season) 2023 [facility]-Chlamydia and Gonorrhea Screening 03/06/2024 03/06/2023, 03/06/2023 [facility]-Influenza Vaccine (#1) 10/26/202411/21, 12/07/2010, 12/05/2009, Additional history exists [facility]-Depression Screening 11/13/2024 11/14/2023, 07/27 [facility]-DTaP,Tdap,and Td Vaccines (5 - Td or Tdap) 07/23/2033 07/24/2023, 04/27/2021, 05/20/2014, Additional history exists [facility]-Zoster Vaccines (1 of 2) 11/23/2051 05/20/2014 HPV Vaccines Completed 05/17/2015, 09/25, 05/20/2014 [facility]-Hepatitis A Vaccines Completed 11/20/2017, 04/26 [facility]-HIV Screening Completed 03/06/2023, 02/07/2020 [facility]-Hepatitis C Screening Completed 03/06/2023, [facility]-HIB Vaccines Aged Out No longer e ligible based on patient's age to complete this topic [facility]-Pneumococcal Vaccine: Pediatrics (0 to 5 Years) and At-Risk Patients (6 to 49 Years) Aged Out No longer eligible based on patient's age to complete this topic [facility]-Rotavirus Vaccines Aged Out No lo nger eligible based on patient's age to complete this topic Goals Goal Patient Goal Type Associated Problems Recent Progress Patient-Stated? Author Delayed Delivery Care Plan CPM S22 PP LABOR (OBSTETRICS) No Open Scheduling, Background Procedures Procedure Name Priority Date/Time Associated Diagnosis Comments HEPATITIS C ANTIBODY W/REFLEX TO HCV QUANT PCR Routine 03/06/2023 8:33 AM EST Unsure of LMP (last menstrual period) as reason for ultrasound scan HIV 1/2 ANTIBODY/ANTIGEN SCREEN WITH REFLEX TO HIV I/II DIFFERENTIATION Routine 03/06/2023 8:33 AM EST Unsure of LMP (last menstrual period) as reason for ultrasound scan CHLAMYDIA TRACHOMATIS DNA BY PCR Routine 03/06/2023 8:33 AM EST Unsure of LMP (last menstrual period) as reason for ultrasound scan from Last 3 Months or Most Recently Relevant to Health Maintenance Results * Chlamydia trachomatis DNA by PCR (03/06/2023 8:33 AM EST) Chlamydia trachomatis DNA PCR Result Not Detected Not Detected 03/07/2023 2:01 PM EST [facility] Urine Urine specimen / Unknown Non-blood Collection / Unknown 03/06/2023 8:33 AM EST 03/06/2023 12:55 PM EST Narrative [facility] - 03/07/2023 2:01 PM EST This test is performed by the [employer] instrument for Real Time PCR C. trachomatis and N. gonorrhea. This test is FDA approved for use with endocervical, vaginal, and urine specimens. This test is used for clinical purposes. It should not be regarded as invesigational or for research. The [facility] Clinical Microbiology Laboratory is certified under the Clinical Laboratory Improvement Amendments of 1988 (CLIA-88) as qualified to perform high complexity clinical laboratory testing. us Ervin Schilling MD LAB MICROBIOLOGY - GENERAL [facility] Final Result Performing Organization Address [facility]/ZIP Co de Phone Number [facility] [address] [place] [address] * HIV 1 & 2 Antibody/Antigen Screen (03/06/2023 8:33 AM EST) HIV 1 & 2 Antibody/Antigen Screen Non Reactive Non Reactive 03/06/2023 1:41 PM EST [facility] Comment:Screening for HIV 1 & 2 antibodies, and P24 antigen is NONREACTIVE. No confirmatory testing is required. Blood Venous blood specimen / Unknown Venipuncture / Unknown 03/06/2023 8:33 AM EST 03/06/2023 1:08 PM EST us Ervin Schilling MD LAB BLOOD ORDERABLES Final Resu lt Performing Organization Address City/[facility]/ZIP Co de Phone Number [facility] [address] [place] [address] * Hepatitis C Antibody (03/06/2023 8:33 AM EST) Hepatitis C Antibody Negative Negative 03/06/2023 1:41 PM EST [facility] Blood Venous blood specimen / Unknown Venipuncture / Unknown 03/06/2023 8:33 AM EST 03/06/2023 1:09 PM EST us Ervin cShilling MD LAB BLOOD ORDERABLES Final Resu lt [facility] [address] [place] [address] from Last 3 Months or Most Recently Relevant to Health Maintenance Additional Health Concerns Active Problems Noted Date Diagnosed Date CPM S22 PP LABOR (OBSTETRICS) 03/08/2023 Insurance MEDICAID Care Teams Director Foundation Relationship Specialty Start Date End Date Rohit Coronel MD [address] [facility] [address] [place] [phone] PCP - General 07/08/20
[2024-09-14 21:07] LABS: Albumin Level 5.4 g/dl (3.5-5.0); Chloride 100 mmol/L (98-107); Hematocrit 37.2 % (37.0-47.0); Hemoglobin 11.9 g/dL (12.2-16.2); Immature Granulocytes % 0.2 %; Mean Corpuscular HGB Conc 32.0 g/dL (31.8-35.4); Mean Corpuscular Hemoglobin 23.7 pg (27.0-31.2); Mean Corpuscular Volume 74.1 fl (81-99); Nucleated Red Blood Cells % 0 %; Platelet Count 450 K/mm3 (142-424); Potassium 3.6 mmoL/L (3.5-5.1); Red Blood Count 5.02 M/mm3 (4.20-5.40); Red Cell Distribution Width-SD 42.6 fL; Sodium 136 mmol/L (136-145); White Blood Count 13.8 K/mm3 (4.8-10.8)
[2024-09-14 21:10] LABS: Alanine Aminotransferase 17 U/L (12-78); Albumin/Globulin Ratio 1.6 (1.1-1.8); Alkaline Phosphatase 72 U/L (38-126); Anion Gap 16.6 mEq/L (5-15); Aspartate Amino Transferase 26 U/L (14-36); Bilirubin,Total 0.8 mg/dl (0.2-1.3); Blood Urea Nitrogen 11 mg/dl (7-17); Carbon Dioxide 23 mmol/L (22.0-30.0); Creatinine Clearance Estimated 101 mL/min (50-200); Creatinine,Serum 0.50 mg/dl (0.52-1.04); Estimated Glomerular Filt Rate 154 ml/min (>60); GFR (African American) 187 ML/MIN (>60); Globulin 3.3 g/dL (1.3-3.2); Total Protein,Serum 8.7 g/dl (6.3-8.2)
[2024-09-14 21:11] LABS: Calcium 9.8 mg/dl (8.4-10.2); Glucose 88 mg/dl (74-100); Magnesium 2.0 mg/dl (1.6-2.3)
[2024-09-14 21:14] LABS: D-Dimer 0.29 ug/mL (0.0-0.5)
[2024-09-14 21:17] LABS: HCG Qualitative, Serum Negative (Negative)
[2024-09-14 21:23] LABS: Troponin I < 0.01 ng/ml (0.00-0.034)
--- NOTE | 2024-09-14 21:24 | HMH.EDGENADL ---
Discharge Plan Disposition Patient Disposition: Home, Self-Care Prescriptions Prescriptions: No Action druiccnltmakpys-smyoiiueb-AS [Bromfed DM] 2-30-10 mg/5 mL syrup 5 ml PO Q4-6H PRN (Reason: sinus symptoms) Qty: 118 0RF dicyclomine 10 mg capsule 10 mg PO BID Qty: 7 0RF Referrals Follow up/Referrals: Rohit Coronel MD [Primary Care Provider, Medical] - See instructions Edward Chamberlain MD [Staff Physician, Cardiology] - See instructions Activity Restrictions/Add. Instructions Additional Instructions/Restrictions: At this time it was felt you are safe to be discharged home. If new or worsening symptoms please do not hesitate to return the emergency department. Please call schedule appoint with Dr. Chamberlain's clinic as soon as you are able if your symptoms persist. Clinical Impressions Clinical Impression: Chest pain Print Language Print Language: Spanish Discharge ED Provider: Andrea Garcia General Adult HPI General Chief complaint: Chest Pain Stated complaint: Heart Racing,SOA Time Seen by Provider: 09/14/24 20:28 Mode of Arrival: Family Vehicle Source of Information: Patient Description of Symptoms (Recalled from ER Triage Doc. by RN): CP Pt prestents to the ED with c/o CP accompanied by SOA and R sided rib pain with inhalation. Pt states It feels like my heart is racing and then it feels like it squeezes . History of Present Illness HPI narrative: Patient is a 23-year-old female with past medical history of anxiety who presents emergency department for evaluation of chest pain shortness of breath. Onset was acute, occurring this evening. She has had panic attacks before but states that she feels like she is not having 1 currently. Last menstrual period 2 weeks ago. No trauma. No other acute complaints at this time. Please note that above description of symptoms, in this electronic medical record under categorization of recalled from ER triage doctor by RN are reflective of an initial nursing assessment, however, is not reflective of my full history and physical exam that was personally taken and clarified. Consequentially, this preceding description of symptoms, which may include the patient's categorized chief complaint in the EMR, do not reflect my personal clinical impression, and the ultimate description of history of present illness and patient stated complaints should be deferred to this section of the note. Unless stated otherwise or congruent with this section of the note, additional signs, symptoms, or incongruence should be interpreted as inaccurate with my clinical impression. Related Data Previous Rx's ?Medication ?Instructions ?Recorded gmsonejarxtlspu-hdhfwldigaweumo-TW 5 ml PO Q4-6H PRN sinus symptoms 04/07/24 2 mg-30 mg-10 mg/5 mL oral syrup #118 mL (Bromfed DM) dicyclomine 10 mg capsule 10 mg PO BID #7 caps 05/07/24 Allergies Allergy/AdvReac Type Severity Reaction Status Date / Time No Known Allergies Allergy Verified 04/07/24 08:50 [facility] Disclaimer: The information contained in this section may have been updated after the patient was seen, as this information can be updated by other users. 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 Urinary tract infection Anxiety 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 History of 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 Smoking Status: Current every day smoker alcohol intake: never substance use type: former substance user and marijuana current occupational status: other Travel in the last 8 weeks?: None household members: family housing: house caffeine: Yes Have you lived/traveled outside [place] in past 30 days?: No Contact w/someone who lives/traveled outside [place] past 30 days?: No Exposure to someone with infectious disease in past 14 days?: No Do you have a fever (greater than 100.4 F or 38 C)?: No Have you tested positive for COVID-19?: No Exposed to someone with COVID-19 in past 14 days?: No Do you have a sore throat?: No Do you have a cough?: No Do you have any weakness?: No Do you have any diarrhea?: No Are you experiencing any unusual bleeding?: No Do you have any muscle aches/pain?: No Do you have any abdominal pain?: No Are you experiencing loss of taste or smell?: No Other 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 Have you received the Flu Vaccine for this season: No Have you received the Pneumonia Vaccine: No ROS Obtained: Yes Systems reviewed as appropriate & no additional complaints except as documented Physical Exam General General appearance: alert and in no apparent distress Head Head exam: atraumatic and normocephalic Eye Eye exam: Present PERRL and EOMI ENT ENT exam: Present mucous membranes moist Neck Neck exam: Present normal inspection Chest Chest inspection: Present normal inspection and symmetric chest wall rise Respiratory Respiratory exam: Present normal lung sounds bilaterally; Absent respiratory distress, wheezes or stridor Cardiovascular Cardiovascular exam: Present regular rate and normal rhythm Abdominal Exam Abdominal exam: Present soft; Absent tenderness Extremities Exam Extremities exam: Present normal inspection Neurological Exam Neurological exam: Present alert Psychiatric Psychiatric exam: Present normal affect Skin Skin exam: Present warm and dry Medical Decision Making Medical Records Screening: Per USPSTF and CDC recommendations, given the prevalence of disease in our region, it is our hospital?s policy to screen for HIV and viral Hepatitis for all patients aged 18 and over and those with ongoing risk factors. Fercho Inquiry Pt receiving controlled substance: No Vital Signs: 09/14/24 20:25 09/14/24 20:27 09/14/24 20:30 Temperature 98.5 F Temperature Source Oral Pulse Rate 87 Pulse Rate [Right] 87 Respiratory Rate 14 Blood Pressure 133/95 H Blood Pressure [Right Arm] 129/102 H Blood Pressure Mean 104 Blood Pressure Mean [Right Arm] 111 Blood Pressure Source [Right Arm] Automatic Cuff Blood Pressure Position [Right Arm] Sitting 02 Sat by Pulse Oximetry 99 100 Oxygen Delivery Method Room Air 09/14/24 20:30 09/14/24 20:32 09/14/24 20:45 Temperature Temperature Source Pulse Rate 87 Pulse Rate [Right] Respiratory Rate 17 15 Blood Pressure Blood Pressure [Right Arm] Blood Pressure Mean Blood Pressure Mean [Right Arm] Blood Pressure Source [Right Arm] Blood Pressure Position [Right Arm] 02 Sat by Pulse Oximetry Oxygen Delivery Method 09/14/24 21:00 09/14/24 21:15 09/14/24 21:30 Temperature Temperature Source Pulse Rate Pulse Rate [Right] Respiratory Rate 17 19 Blood Pressure 127/96 H Blood Pressure [Right Arm] Blood Pressure Mean 105 Blood Pressure Mean [Right Arm] Blood Pressure Source [Right Arm] Blood Pressure Position [Right Arm] 02 Sat by Pulse Oximetry Oxygen Delivery Method 09/14/24 21:41 09/14/24 21:41 09/14/24 21:45 Temperature Temperature Source Pulse Rate 79 79 Pulse Rate [Right] Respiratory Rate 17 20 Blood Pressure 131/80 Blood Pressure [Right Arm] Blood Pressure Mean 97 Blood Pressure Mean [Right Arm] Blood Pressure Source [Right Arm] Blood Pressure Position [Right Arm] 02 Sat by Pulse Oximetry 100 100 Oxygen Delivery Method 09/14/24 22:00 09/14/24 22:00 09/14/24 22:15 Temperature Temperature Source Pulse Rate 78 77 Pulse Rate [Right] Respiratory Rate 16 21 Blood Pressure 118/81 Blood Pressure [Right Arm] Blood Pressure Mean 92 Blood Pressure Mean [Right Arm] Blood Pressure Source [Right Arm] Blood Pressure Position [Right Arm] 02 Sat by Pulse Oximetry 100 100 Oxygen Delivery Method Lab Data Lab Results 09/14/24 20:40: WBC 13.8 H, RBC 5.02, Hgb 11.9 L, Hct 37.2, MCV 74.1 L, MCH 23.7 L, MCHC 32.0, RDW 16.1, Plt Count 450 H, MPV 10.6 H, Neut % (Auto) 72.0, Lymph % (Auto) 21.1, [place] % (Auto) 5.9, Eos % (Auto) 0.4, Baso % (Auto) 0.4, Neut # (Auto) 10.0 H, Lymph # (Auto) 2.9, [place] # (Auto) 0.8, Eos # (Auto) 0.1, Baso # (Auto) 0.1, D-Dimer 0.29, Sodium 136, Potassium 3.6, Chloride 100, Carbon Dioxide 23, Anion Gap 16.6 H, BUN 11, Creatinine 0.50 L, Estimated Creat Clear 101, Estimated GFR 154, Est GFR ( Amer) 187, Glucose 88, Calcium 9.8, Magnesium 2.0, Total Bilirubin 0.8, AST 26, ALT 17, Alkaline Phosphatase 72, Troponin I < 0.01, Total Protein 8.7 H, Albumin 5.4 H, Globulin 3.3 H, Albumin/Globulin Ratio 1.6, Serum HCG, Qual Negative, HCV Ab TASIA w/Rflx PCR Qn Negative, HIV Ag/Ab Combo Qual Negative 09/14/24 20:40 09/14/24 20:40 Orders (Tests/Meds): ED MEDICATIONS Discontinued Medications Generic Name Dose Route Start Last Admin Trade Name Freq PRN Reason Stop Dose Admin Acetaminophen 1,000 mg 09/14/24 21:27 09/14/24 21:35 Acetaminophen 500mg Tab PO 09/14/24 21:28 1,000 mg ONCE ONE Administration Ketorolac Tromethamine 30 mg 09/14/24 21:27 09/14/24 21:34 Ketorolac 30mg/Ml Vial IV 09/14/24 21:28 30 mg ONCE ONE Administration ORDERS Category Date Time Status CXR --portable [XR chest portable] Stat Exams 09/14/24 20:29 Completed CBC w/Auto Diff [Complete Blood Count Auto Diff] Stat Lab 09/14/24 20:40 Completed CMP [Comprehensive Metabolic Panel] Stat Lab 09/14/24 20:40 Completed D-Dimer Stat Lab 09/14/24 20:40 Completed HCG Qualitative, Serum Stat Lab 09/14/24 20:40 Completed HIV Combo Stat Lab 09/14/24 20:40 Completed Hepatitis C Ab Qual. W/ RFX Stat Lab 09/14/24 20:40 Completed MG [Magnesium] Stat Lab 09/14/24 20:40 Completed Trop I [Troponin I] Stat Lab 09/14/24 20:40 Completed Troponin I Q3H Lab 09/14/24 23:30 Ordered Troponin I Q3H Lab 09/15/24 02:30 Ordered ECG Data Tracing #1: Independently interpreted by me rate is 90, rhythm is regular, axis is normal, no ST elevation in anatomical contiguous leads, no dagger Q waves in the lateral leads, no evidence of type II Brugada. QTc 3 5 Medical Decision Narrative: In summary patient is a 23-year-old female past medical history described above presents emerged part for evaluation of pleuritic chest pain. Patient is hemodynamically stable nontoxic-appearing upon arrival, afebrile. Differential diagnosis includes ACS, pulmonary embolism, noncardiac chest pain, anxiety, among others. Workup will be conducted with hematologic labs, chest x-ray, EKG, serial troponins. Initial inventions includes Tylenol and Toradol. D-dimer will be obtained. Initial workup reviewed by me, nonspecific leukocytosis of 13.8, no critical electrolyte abnormality or MICHAEL initial troponin undetectably low hCG negative. D-dimer 0.29 excludes low risk aortic dissection or pulmonary embolism, hCG negative. Upon repeat evaluation patient was resting in bed. At this point I feel that all emergent causes of chest pain have essentially ruled out and patient is appropriate for outpatient management at this time given lack of cardiovascular risk factors, hemodynamically stable and negative workup thus far. Patient will be referred to cardiology if her symptoms are persistent she was instructed to call them this week to get in for evaluation. Critical Care Critical Care Time Critical Care Time: No
[2024-09-14] MEDS: KETOROLAC 30MG/ML VIAL 30 MG IV (21:34)
[2024-09-14] MEDS: ACETAMINOPHEN 500MG TAB 1000 MG PO (21:35)
[2024-09-14 21:59] LABS: Hepatitis C Ab Qual. W/ RFX NEGATIVE (Negative)
== END 2024-09-14 23:15 | disposition home or self-care (01) ==
PROVIDERS: Emergency Provider Emergency Medicine; PCP Family Medicine
DX: R07.9 Chest pain, unspecified (principal); F41.9 Anxiety disorder, unspecified; F17.210 Nicotine dependence, cigarettes, uncomplicated
CPT/HCPCS: 71045; 80053; 83735; 84484; 84703; 85025; 85378; 86803; 87389; 93005; 96374; 99285; J1885